=== PATIENT | male | born 1980 ===

== ENCOUNTER 2021-03-20 06:57 | Inpatient (IN) | payer SELFPAY ==
--- NOTE | 2021-03-20 07:09 | Emergency Department Report ---
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 He reports a history of alcohol abuse, and GI bleed. He reports being admitted to a hospital in [place] a few months ago, for GI bleed. He does not know what hospital he was admitted to, nor does he know the details of his diagnosis. He presents to the ER today with a complaint of vomiting blood, defecation of blood, and possible seizure. He believes that he had a seizure at home on the bed. He states his last alcoholic beverage was yesterday. The patient denies headache, neck pain, chest pain, abdominal pain, muscle Doddy and suicidality. The patient thinks that either himself or his brother called 911 because of a possible seizure today. Patient is a poor historian, not accompanied by friends or family at this time for collateral information or additional information. -: Sudden Severity scale (0 -10): 0 Consistency: intermittent Improves with: none Worsens with: none - Related Data Home Medications Medication Instructions Recorded Confirmed Last Taken No Known Home Medications [No 03/20/21 03/20/21 Unknown Reported Home Medications] Allergies Allergy/AdvReac Type Severity Reaction Status Date / Time No Known Allergies Allergy Unverified 03/20/21 07:13 ED Review of Systems ROS: Stated complaint: POSS SEIZURE Other details as noted in HPI Constitutional: malaise, weakness Eyes: denies: eye discharge ENT: denies: epistaxis Respiratory: denies: cough Cardiovascular: denies: chest pain Gastrointestinal: nausea, vomiting, hematemesis, melena. denies: abdominal pain, hematochezia Neurological: weakness Psychiatric: anxiety. denies: suicidal thoughts ED Past Medical Hx - Medications Home Medications: Home Medications Medication Instructions Recorded Confirmed Last Taken Type No Known Home Medications [No 03/20/21 03/20/21 Unknown History Reported Home Medications] ED Physical Exam - General Limitations: Language Barrier, Other (Tongue fasciculations. Tremors.) General appearance: alert, anxious - Head Head exam: Present: atraumatic, normocephalic - Eye Eye exam: Present: normal appearance, EOMI. Absent: nystagmus - ENT ENT exam: Present: normal exam, normal orophraynx, mucous membranes moist, normal external ear exam, other (Tongue fasciculations noted) - Neck Neck exam: Present: normal inspection, full ROM. Absent: tenderness, meningismus - Respiratory Respiratory exam: Present: normal lung sounds bilaterally. Absent: respiratory distress, wheezes, rales, rhonchi, stridor, decreased breath sounds - Cardiovascular Cardiovascular Exam: Present: normal rhythm, tachycardia, normal heart sounds. Absent: bradycardia, irregular rhythm, systolic murmur, diastolic murmur, rubs, gallop - GI/Abdominal GI/Abdominal exam: Present: soft. Absent: distended, tenderness, guarding, rebound, rigid, pulsatile mass - Rectal Rectal exam: Present: normal inspection (Chaperoned by nurse Beth Slater), normal rectal tone, heme (+) stool, black stool - Extremities Exam Extremities exam: Present: normal inspection, full ROM, other (2+ pulses noted in the bilateral upper and lower extremities. There is no palpable cord. ne gative Homans sign. Muscular compartments are soft. The pelvis is stable.). Absent: pedal edema, calf tenderness - Back Exam Back exam: Present: normal inspection. Absent: tenderness, CVA tenderness (R), CVA tenderness (L), paraspinal tenderness, vertebral tenderness - Neurological Exam Neurological exam: Present: alert (The patient is hyperreflexic), other (No facial droop. Tongue midline. Extraocular movements intact bilaterally. Facial sensation intact to light touch in V1, V2, V3 distribution bilaterally. 5 and a 5 strength in 4 extremities. Sensation intact to light touch in 4 extremities.) - Psychiatric Psychiatric exam: Present: anxious. Absent: homicidal ideation, suicidal ideation - Skin Skin exam: Present: warm, dry, intact, normal color. Absent: rash ED Course Vital Signs 03/20/21 03/20/21 03/20/21 06:58 07:07 07:08 Temperature 98.8 F 98.3 F Pulse Rate 100 H 88 89 Respiratory 17 19 20 Rate Blood Pressure 125/47 Blood Pressure 118/64 125/47 [Right] O2 Sat by Pulse 99 99 97 Oximetry - Reevaluation(s) Reevaluation #1: 03/20/21 07:47 Differential diagnosis, including but not limited to: Upper GI bleed, alcohol withdrawal, electrolyte derangement, intracranial hemorrhage Assessment and plan: 41-year-old gentleman, who is an alcoholic, with tachycardia, tongue fasciculations, tremors, black tarry stool, and history of vomiting blood and defecation of blood, with possible seizure. Suspect alcohol-related withdrawal seizure. There is no midline cervical spine pain, tenderness, step-offs or history of trauma. Obtain CT scan of the brain. Start Valium. Start Keppra. IV fluids/Protonix/banana bag. GI on board. Obtain appropriate laboratory studies, alcohol withdrawal protocol. Admit patient to the medical service once initial diagnostics have resulted. Discussed this plan of care with the patient. He is agreeable to this plan of care. All questions answered. 03/20/21 08:27 patient found to have macrocytic anemia with unremarkable platelet count. Comprehensive metabolic panel demonstrates elevated BUN, compared to creatinine, corroborative of upper GI bleed. Noncontrast CT scan to my interpretation does not appear to demonstrate any acute findings. Serum toxicology study unremarkable. Patient resting comfortably in stretcher. Hospital physician, Dr. Chao to admit to [facility] will admit to [facility] 03/20/21 09:01 chest x-ray suggest pulmonary infiltrate. Uncertain if aspiration, or infection. We will cover with antibiotics - Consultations Consultation #1: 03/20/21 07:46 Discussed history, physical, clinical impression with gastroenterology on-call, Dr. Ortega. She is in agreement with the plan of care. GI will follow in consultation. Request call back to the GI group once initial laboratory studies have resulted. 03/20/21 08:59 Rediscussed with GI on-call, Dr. Plata. Discussed history, physical, laboratory studies and imaging studies. GI will see the patient shortly in consultation. At this point time, we agreed to not initiate antibiotics or octreotide. Patient resting comfortably in stretcher. ED Medical Decision Making - Lab Data Result diagrams: 03/20/21 07:30 03/20/21 07:30 Vital Signs 03/20/21 03/20/21 03/20/21 06:58 07:07 07:08 Temperature 98.8 F 98.3 F Pulse Rate 100 H 88 89 Respiratory 17 19 20 Rate Blood Pressure 125/47 Blood Pressure 118/64 125/47 [Right] O2 Sat by Pulse 99 99 97 Oximetry Lab Results 03/20/21 03/20/21 03/20/21 Range/Units 07:30 07:30 07:30 WBC 5.9 (4.5-11.0) K/mm3 RBC 2.39 L (3.65-5.03) M/mm3 Hgb 4.4 L* (11.8-15.2) gm/dl Hct 15.1 L* (35.5-45.6) % MCV 63 L (84-94) fl MCH 18 L (28-32) pg MCHC 29 L (32-34) % RDW 22.4 H (13.2-15.2) % Plt Count 247 (140-440) K/mm3 Lymph % (Auto) 13.4 (13.4-35.0) % [place] % (Auto) 9.2 H (0.0-7.3) % Eos % (Auto) 0.3 (0.0-4.3) % Baso % (Auto) 1.8 (0.0-1.8) % Lymph # (Auto) 0.8 L (1.2-5.4) K/mm3 [place] # (Auto) 0.5 (0.0-0.8) K/mm3 Eos # (Auto) 0.0 (0.0-0.4) K/mm3 Baso # (Auto) 0.1 (0.0-0.1) K/mm3 Seg Neutrophils % 75.3 H (40.0-70.0) % Seg Neutrophils # 4.4 (1.8-7.7) K/mm3 PT 14.3 (12.2-14.9) Sec. INR 1.00 (0.87-1.13) APTT 28.2 (24.2-36.6) Sec. Sodium 132 L (137-145) mmol/L Potassium 3.7 (3.6-5.0) mmol/L Chloride 97.6 L (98-107) mmol/L Carbon Dioxide 21 L (22-30) mmol/L Anion Gap 17 mmol/L BUN 23 H (9-20) mg/dL Creatinine 0.7 L (0.8-1.3) mg/dL Estimated GFR > 60 ml/min BUN/Creatinine Ratio 33 % Glucose 128 H (75-100) mg/dL Calcium 8.6 (8.4-10.2) mg/dL Magnesium (1.7-2.3) mg/dL Total Bilirubin 0.40 (0.1-1.2) mg/dL AST 36 (5-40) units/L ALT 23 (7-56) units/L Alkaline Phosphatase 41 (35-129) units/L Total Creatine Kinase (55-170) units/L Total Protein 6.9 (6.3-8.2) g/dL Albumin 3.9 (3.9-5) g/dL Albumin/Globulin Ratio 1.3 % Salicylates (2.8-20.0) mg/dL Acetaminophen (10.0-30.0) ug/mL Plasma/Serum Alcohol (0-0.07) % 03/20/21 03/20/21 03/20/21 Range/Units 07:30 07:30 07:30 WBC (4.5-11.0) K/mm3 RBC (3.65-5.03) M/mm3 Hgb (11.8-15.2) gm/dl Hct (35.5-45.6) % MCV (84-94) fl MCH (28-32) pg MCHC (32-34) % RDW (13.2-15.2) % Plt Count (140-440) K/mm3 Lymph % (Auto) (13.4-35.0) % [place] % (Auto) (0.0-7.3) % Eos % (Auto) (0.0-4.3) % Baso % (Auto) (0.0-1.8) % Lymph # (Auto) (1.2-5.4) K/mm3 [place] # (Auto) (0.0-0.8) K/mm3 Eos # (Auto) (0.0-0.4) K/mm3 Baso # (Auto) (0.0-0.1) K/mm3 Seg Neutrophils % (40.0-70.0) % Seg Neutrophils # (1.8-7.7) K/mm3 PT (12.2-14.9) Sec. INR (0.87-1.13) APTT (24.2-36.6) Sec. Sodium (137-145) mmol/L Potassium (3.6-5.0) mmol/L Chloride (98-107) mmol/L Carbon Dioxide (22-30) mmol/L Anion Gap mmol/L BUN (9-20) mg/dL Creatinine (0.8-1.3) mg/dL Estimated GFR ml/min BUN/Creatinine Ratio % Glucose (75-100) mg/dL Calcium (8.4-10.2) mg/dL Magnesium 1.70 (1.7-2.3) mg/dL Total Bilirubin (0.1-1.2) mg/dL AST (5-40) units/L ALT (7-56) units/L Alkaline Phosphatase (35-129) units/L Total Creatine Kinase 400 H (55-170) units/L Total Protein (6.3-8.2) g/dL Albumin (3.9-5) g/dL Albumin/Globulin Ratio % Salicylates < 0.3 L (2.8-20.0) mg/dL Acetaminophen 5.0 L (10.0-30.0) ug/mL Plasma/Serum Alcohol (0-0.07) % // Range/Units 07:30 WBC (4.5-11.0) K/mm3 RBC (3.65-5.03) M/mm3 Hgb (11.8-15.2) gm/dl Hct (35.5-45.6) % MCV (84-94) fl MCH (28-32) pg MCHC (32-34) % RDW (13.2-15.2) % Plt Count (140-440) K/mm3 Lymph % (Auto) (13.4-35.0) % [place] % (Auto) (0.0-7.3) % Eos % (Auto) (0.0-4.3) % Baso % (Auto) (0.0-1.8) % Lymph # (Auto) (1.2-5.4) K/mm3 [place] # (Auto) (0.0-0.8) K/mm3 Eos # (Auto) (0.0-0.4) K/mm3 Baso # (Auto) (0.0-0.1) K/mm3 Seg Neutrophils % (40.0-70.0) % Seg Neutrophils # (1.8-7.7) K/mm3 PT (12.2-14.9) Sec. INR (0.87-1.13) APTT (24.2-36.6) Sec. Sodium (137-145) mmol/L Potassium (3.6-5.0) mmol/L Chloride (98-107) mmol/L Carbon Dioxide (22-30) mmol/L Anion Gap mmol/L BUN (9-20) mg/dL Creatinine (0.8-1.3) mg/dL Estimated GFR ml/min BUN/Creatinine Ratio % Glucose (75-100) mg/dL Calcium (8.4-10.2) mg/dL Magnesium (1.7-2.3) mg/dL Total Bilirubin (0.1-1.2) mg/dL AST (5-40) units/L ALT (7-56) units/L Alkaline Phosphatase (35-129) units/L Total Creatine Kinase (55-170) units/L Total Protein (6.3-8.2) g/dL Albumin (3.9-5) g/dL Albumin/Globulin Ratio % Salicylates (2.8-20.0) mg/dL Acetaminophen (10.0-30.0) ug/mL Plasma/Serum Alcohol 0.09 H (0-0.07) % - EKG Data -: EKG Interpreted by Tn EKG shows normal: sinus rhythm Rate: normal - EKG Data 03/20/21 07:57 The EKG is interpreted at 07: 47 Sinus rate, 74 bpm, normal axis, normal P wave axis, numerous T wave abnormalities, high left ventricular voltage, QTC is prolonged, this is an abnormal EKG, this EKG is not a STEMI. The patient denies chest pain. - Radiology Data Radiology results: pending, report reviewed, image reviewed CT head/brain wo con INDICATION / CLINICAL INFORMATION: 41 years Male; etoh abuse seizure. TECHNIQUE: Routine CT head without contrast. All CT scans at this location are performed using CT dose reduction for ALARA by means of automated exposure control. COMPARISON: None. FINDINGS: BRAIN / INTRACRANIAL CONTENTS: No acute hemorrhage, mass effect, midline shift, hydrocephalus, or acute, large territorial infarct. No signs of significant atrophy or chronic infarct. No significant white matter abnormality seen. CRANIOCERVICAL JUNCTION: No significant abnormality. ORBITS: No significant abnormality of visualized orbits. SINUSES / MASTOIDS: Mild mucosal thickening in the ethmoids. ADDITIONAL FINDINGS: None. IMPRESSION: 1. No focal mass, hemorrhage, hydrocephalus, or acute, large territorial infarct. Signer Name: Asael Capps MD, III Signed: 03/20/2021 7:47 AM Workstation Name: [id number] CHEST 1 VIEW 03/20/2021 7:36 AM INDICATION / CLINICAL INFORMATION: hematemesis. COMPARISON: None available. FINDINGS: SUPPORT DEVICES: None. HEART / MEDIASTINUM: No significant abnormality. LUNGS / PLEURA: Right basilar opacity. No pneumothorax. ADDITIONAL FINDINGS: No significant additional findings. IMPRESSION: 1. Right basilar opacity which may represent infectious process in the appropriate clinical setting. Signer Name: Hao Pathak DO Signed: 03/20/2021 7:40 AM Workstation Name: [id number] Critical Care Time: Yes Critical care time in (mins) excluding proc time.: 45 Critical care attestation.: If time is entered above; I have spent that time in minutes in the direct care of this critically ill patient, excluding procedure time. ED Disposition Clinical Impression: UGIB (upper gastrointestinal bleed), Alcohol withdrawal seizure with complication, Alcohol dependence, Microcytic anemia, Pulmonary infiltrate in right lung on CXR Disposition: 09 ADMITTED INPATIENT Is pt being admited?: Yes Does the pt Need Aspirin: No Condition: Serious Referrals: PRIMARY CARE, [Primary Care Provider] - 3-5 Days
[2021-03-20] MEDS ORDERED: PANTOPRAZOLE 40 MG INJ IV ONE (07:25)
[2021-03-20] MEDS ORDERED: levETIRAcetam 1000 MG/NS 0.75% 1,000 MG/100 ML BAG IV ONE (07:25)
[2021-03-20] MEDS ORDERED: diazePAM 10 MG/2 ML SYRINGE IV ONE (07:25)
[2021-03-20] MEDS ORDERED: ONDANSETRON 4 MG/2 ML INJ IV ONE (07:25)
[2021-03-20 07:59] LABS: Basophils # (Auto) 0.1 K/mm3 (0.0-0.1); Basophils % (Auto) 1.8 % (0.0-1.8); Eosinophils % (Auto) 0.3 % (0.0-4.3); Lymphocytes # (Auto) 0.8 K/mm3 (1.2-5.4); Lymphocytes % (Auto) 13.4 % (13.4-35.0); Mean Corpuscular HGB Conc 29 % (32-34); Monocytes # (Auto) 0.5 K/mm3 (0.0-0.8); Monocytes % (Auto) 9.2 % (0.0-7.3); Platelet Count 247 K/mm3 (140-440); Red Blood Count 2.39 M/mm3 (3.65-5.03)
[2021-03-20] MEDS ORDERED: THIAMINE 100 MG, FOLIC ACID 1 MG, MULTIPLE VITAMIN INJ, ADULT 10 ML in SODIUM CHLORIDE ... IV ONE (08:00)
[2021-03-20 08:02] LABS: Hemoglobin 4.4 gm/dl (11.8-15.2)
[2021-03-20 08:03] LABS: Hematocrit 15.1 % (35.5-45.6); Mean Corpuscular Volume 63 fl (84-94); Red Cell Distribution Width 22.4 % (13.2-15.2)
[2021-03-20] MEDS ORDERED: SODIUM CHLORIDE 0.9% 500 ML 500 ML IV ONE ×2 (08:05→17:57)
[2021-03-20 08:11] LABS: Partial Thromboplastin Time 28.2 Sec. (24.2-36.6)
[2021-03-20 08:15] LABS: Alanine Aminotransferase 23 units/L (7-56); Albumin 3.9 g/dL (3.9-5); Blood Urea Nitrogen 23 mg/dL (9-20); Calcium 8.6 mg/dL (8.4-10.2); Hemolysis Index 0
[2021-03-20 08:20] LABS: BUN/Creatinine Ratio 33
--- NOTE | 2021-03-20 08:44 | XRay Report ---
CHEST 1 VIEW 03/20/2021 7:36 AM INDICATION / CLINICAL INFORMATION: hematemesis. COMPARISON: None available. FINDINGS: SUPPORT DEVICES: None. HEART / MEDIASTINUM: No significant abnormality. LUNGS / PLEURA: Right basilar opacity. No pneumothorax. ADDITIONAL FINDINGS: No significant additional findings. IMPRESSION: 1. Right basilar opacity which may represent infectious process in the appropriate clinical setting. Signer Name: Hao Pathak DO Signed: 03/20/2021 8:40 AM Workstation Name: [id number]
--- NOTE | 2021-03-20 08:52 | Cat Scan Report ---
CT head/brain wo con INDICATION / CLINICAL INFORMATION: 41 years Male; etoh abuse seizure. TECHNIQUE: Routine CT head without contrast. All CT scans at this location are performed using CT dos e reduction for ALARA by means of automated exposure control. COMPARISON: None. FINDINGS: BRAIN / INTRACRANIAL CONTENTS: No acute hemorrhage, mass effect, midline shift, hydrocephalus, or acu te, large territorial infarct. No signs of significant atrophy or chronic infarct. No significant whi te matter abnormality seen. CRANIOCERVICAL JUNCTION: No significant abnormality. ORBITS: No significant abnormality of visualized orbits. SINUSES / MASTOIDS: Mild mucosal thickening in the ethmoids. ADDITIONAL FINDINGS: None. IMPRESSION: 1. No focal mass, hemorrhage, hydrocephalus, or acute, large territorial infarct. Signer Name: Asael Capps MD, III Signed: 03/20/2021 8:47 AM Workstation Name: [id number]
[2021-03-20] MEDS ORDERED: cefTRIAXone/NS 1 GM/50 ML 1 GM/50 ML BAG IV ONE (09:00)
[2021-03-20] MEDS ORDERED: AZITHROMYCIN/NS 500 MG/250 ML 500 MG/250 ML BAG IV ONE (09:00)
[2021-03-20] MEDS ORDERED: SODIUM CHLORIDE 0.9% 500 ML 500 ML IV NR (09:04)
[2021-03-20 09:46] LABS: Bilirubin,Urine NEG (Negative); Blood,Urine NEG (Negative); Color,Urine Yellow (Yellow); Protein,Urine <15 mg/dL mg/dL (Negative); RBC,Urine < 1.0 /HPF (0.0-6.0); Urobilinogen,Urine < 2.0 mg/dL (<2.0); WBC,Urine < 1.0 /HPF (0.0-6.0)
[2021-03-20 09:55] LABS: Amphetamine Screen,Urine Negative; Benzodiazepines Screen,Urine Negative; Cannabinoid Screen,Urine Negative; Cocaine Screen,Urine Negative; Methadone Screen,Urine Negative; Opiate Screen,Urine Negative
--- NOTE | 2021-03-20 12:03 | History and Physical Report ---
History of Present Illness Date of examination: 03/20/21 Date of admission: 03/20/21 08:28 Chief complaint: Vomiting blood History of present illness: The patient is a 41-year-old gentleman with a history of alcohol abuse and GI bleed who reported being admitted to a hospital in [place] a few months ago, for GI bleed. He does not know what hospital he was admitted to, nor does he know the details of his diagnosis. He presents to the ER today with a complaint of vomiting blood, bloody stool, and possible seizure. He believes that he had a seizure at home on the bed. He states his last alcoholic beverage was yesterday. The patient denies headache, neck pain, chest pain, abdominal pain, muscle Doddy and suicidality. The patient thinks that either himself or his brother called 911 because of a possible seizure today. Patient is a poor historian, not accompanied by friends or family at this time for collateral information or additional information. Patient states that he drinks 4 beers daily. Work-up in the ER showed hemoglobin of 4.4, sodium 123 plasma alcohol level 0.09. Patient was given IV fluid, initiated on blood transfusion, placed on CIWA protocol, GI consulted and call for admission for further evaluation and manag ement of severe anemia, acute GI bleed. Review of System: Constitutional: no fever, no chills, no weight loss Ears, eyes, nose, mouth and throat: no nasal congestion, no nasal discharge, no sinus pressure, no vision change, no red eye. Neck: No neck pain or rigidity. Cardiovascular: No chest pain, no orthopnea, no palpitations, no leg swelling Respiratory: No shortness of breath, no cough, no congestion, no wheezing Gastrointestinal: + abdominal pain, + nausea, + vomiting Genitourinary : no dysuria, no hematuria Musculoskeletal: no joint swelling or muscle ache Integumentary: no rash, no pruritis Neurological: no parathesias, no numbness, no tingling Endocrine: no cold or heat intolerance, no polyuria or polydipsia Hematologic/Lymphatic: no easy bruising, no easy bleeding, no gland swelling Allergic/Immunologic: no urticaria, no angioedema. Past History Past Medical History: other (Alcohol abuse) Past Surgical History: denies: No surgical history Social history: alcohol abuse Family history: no significant family history Medications and Allergies Allergies Allergy/AdvReac Type Severity Reaction Status Date / Time No Known Allergies Allergy Unverified 03/20/21 07:13 Home Medications Medication Instructions Recorded Confirmed Last Taken Type No Known Home Medications [No 03/20/21 03/20/21 Unknown History Reported Home Medications] Active Meds: Active Medications Pantoprazole Sodium 80 mg/ (Sodium Chloride) 100 mls @ 10 mls/hr IV DIRECT BOYD Sodium Chloride (Nacl 0.9% 500 Ml) 500 mls @ 0 mls/hr IV ONCE NR Stop: 03/20/21 20:00 Sodium Chloride (Nacl 0.9% 1000 Ml) 1,000 mls @ 125 mls/hr IV DIRECT BOYD Lorazepam (Lorazepam 2 Mg/Ml Vial) 2 mg IV Q1HR PRN PRN Reason: CIWA-Ar 8-15 Lorazepam (Lorazepam 2 Mg/Ml Vial) 4 mg IV Q1HR PRN PRN Reason: CIWA-Ar 16-25 Exam - Physical Exam Narrative exam: GENERAL: well-developed and well-nourished male lying on bed appeared to be in mild discomfort with tremors. HEENT: Normocephalic. Atraumatic. No conjunctival congestion or icterus. Patient has moist mucous membranes. NECK: Supple. Trachea midline. CHEST/LUNGS: Clear to auscultated bilaterally, breathing nonlabored. No wheezes crackles or rhonchi. HEART/CARDIOVASCULAR: Regular in rate and rhythm. S1 and S2 positive. ABDOMEN: Abdomen is soft, mild epigastric tenderness. Patient has normal bowel sounds. SKIN: There is no rash. Warm and dry. NEURO: No focal motor deficit. Follows command. Positive asterixis MUSCULOSKELETAL: No joint effusion or tenderness. EXTRIMITY: No edema, no cyanosis or clubbing. PSYCH: Cooperative. - Constitutional Vitals: Temp Pulse Resp BP Pulse Ox 98.3 F 107 H 29 H 120/66 100 03/20/21 07:07 03/20/21 10:00 03/20/21 10:00 03/20/21 10:00 03/20/21 10:00 Results - Labs CBC & Chem 7: 03/22/21 07:46 03/22/21 07:40 Labs: Abnormal lab results 03/20/21 03/20/21 03/20/21 Range/Units 07:25 07:30 07:30 RBC 2.39 L (3.65-5.03) M/mm3 Hgb 4.4 L* (11.8-15.2) gm/dl Hct 15.1 L* (35.5-45.6) % MCV 63 L (84-94) fl MCH 18 L (28-32) pg MCHC 29 L (32-34) % RDW 22.4 H (13.2-15.2) % [place] % (Auto) 9.2 H (0.0-7.3) % Lymph # (Auto) 0.8 L (1.2-5.4) K/mm3 Seg Neutrophils % 75.3 H (40.0-70.0) % Sodium 132 L (137-145) mmol/L Chloride 97.6 L (98-107) mmol/L Carbon Dioxide 21 L (22-30) mmol/L BUN 23 H (9-20) mg/dL Creatinine 0.7 L (0.8-1.3) mg/dL Glucose 128 H (75-100) mg/dL Total Creatine Kinase (55-170) units/L Salicylates (2.8-20.0) mg/dL Acetaminophen (10.0-30.0) ug/mL Plasma/Serum Alcohol (0-0.07) % Crossmatch See Detail 03/20/21 03/20/21 03/20/21 Range/Units 07:30 07:30 07:30 RBC (3.65-5.03) M/mm3 Hgb (11.8-15.2) gm/dl Hct (35.5-45.6) % MCV (84-94) fl MCH (28-32) pg MCHC (32-34) % RDW (13.2-15.2) % [place] % (Auto) (0.0-7.3) % Lymph # (Auto) (1.2-5.4) K/mm3 Seg Neutrophils % (40.0-70.0) % Sodium (137-145) mmol/L Chloride (98-107) mmol/L Carbon Dioxide (22-30) mmol/L BUN (9-20) mg/dL Creatinine (0.8-1.3) mg/dL Glucose (75-100) mg/dL Total Creatine Kinase 400 H (55-170) units/L Salicylates < 0.3 L (2.8-20.0) mg/dL Acetaminophen 5.0 L (10.0-30.0) ug/mL Plasma/Serum Alcohol (0-0.07) % Crossmatch 03/20/21 Range/Units 07:30 RBC (3.65-5.03) M/mm3 Hgb (11.8-15.2) gm/dl Hct (35.5-45.6) % MCV (84-94) fl MCH (28-32) pg MCHC (32-34) % RDW (13.2-15.2) % [place] % (Auto) (0.0-7.3) % Lymph # (Auto) (1.2-5.4) K/mm3 Seg Neutrophils % (40.0-70.0) % Sodium (137-145) mmol/L Chloride (98-107) mmol/L Carbon Dioxide (22-30) mmol/L BUN (9-20) mg/dL Creatinine (0.8-1.3) mg/dL Glucose (75-100) mg/dL Total Creatine Kinase (55-170) units/L Salicylates (2.8-20.0) mg/dL Acetaminophen (10.0-30.0) ug/mL Plasma/Serum Alcohol 0.09 H (0-0.07) % Crossmatch - Imaging and Cardiology Chest x-ray: report reviewed (Right basilar opacity) CT Scan - head: report reviewed (Reviewed, no focal mass hemorrhage or infarct) Assessment and Plan --Acute upper GI bleed --Severe blood loss anemia Patient received 1 unit of packed RBC transfusion in the ER Will transfuse 2 more additional unit of packed RBC Continue PPI IV, consulted GI for possible EGD continue IV fluid, monitor H&H --Seizure likely due to alcohol withdrawal Admit to stepdown unit, CT head unremarkable Patient placed on Ativan as needed as needed for seizure --Alcohol abuse with withdrawal Supportive care for alcohol withdrawal, Place on [facility] protocol --Right basilar opacity likely aspiration pneumonia No elevated white count, no fever, monitor off antibiotics --DVT prophylaxis, SCD Plan: Admit to stepdown unit, CT head unremarkable Patient received 1 unit of packed RBC transfusion in the ER Will transfuse 2 more additional unit of packed RBC Continue PPI IV, consulted GI for possible EGD continue IV fluid, monitor H&H Supportive care for alcohol withdrawal, Place on [place] protocol SCD for GI prophylaxis
--- NOTE | 2021-03-20 13:00 | Electrocardiograph Report ---
[facility] Test Date: 2021-03-20 Test Time: 07:47:54 Pat Name: SHAWNA MILLER Department: Room: [facility] Gender: M Vessel Scrapper: CLAUDIA : 1980 Requested By: DEBI MONACO Order Number: [id number] Reading MD: Carlito Nelson Measurements Intervals [place] Rate: 74 P: 16 VA: 124 QRS: 18 QRSD: 99 T: -73 QT: 535 QTc: 595 Interpretive Statements Sinus rhythm T wave inversions, consider inferior ischemia Prolonged QT interval No previous ECG available for comparison Electronically Signed On 03-20-2021 13:00:31 EST by Carlito Nelson
[2021-03-20 16:19] LABS: Hemoglobin 5.2 gm/dl (11.8-15.2)
[2021-03-20 16:20] LABS: Hematocrit 17.8 % (35.5-45.6)
--- NOTE | 2021-03-20 19:07 | Event Note ---
Date: 03/20/21 Full consult dictated - signs UGI bleed - transfuse to Hgb >7 - egd in am
[2021-03-21 00:01] LABS: Hematocrit 20.5 % (35.5-45.6); Hemoglobin 6.3 gm/dl (11.8-15.2)
[2021-03-21] MEDS: LORazepam 2 MG/ML VIAL IV PRN ×16 (00:06→23:10)
--- NOTE | 2021-03-21 02:32 | Consultation ---
DATE OF CONSULTATION: 03/20/2021 REFERRING PHYSICIAN: Dr. Rosa Chao. INDICATIONS: 1. Anemia. 2. Gastrointestinal bleed. HISTORY OF PRESENT ILLNESS: The patient is a 41-year-old male who presents for upper GI bleed. The patient has a history of alcohol abuse. The patient started having nausea, vomiting and reported to have multiple bouts of hematemesis. He denies a history of GI bleed in the past. The patient does drink heavily, but denies a history of any known liver disease. The patient subsequently came to the emergency room, was noted to be significantly anemic as well as hypertensive, admitted and GI consulted. PAST MEDICAL HISTORY: None. MEDICATIONS: Reviewed and updated in chart. ALLERGIES: No known drug allergies. SOCIAL HISTORY: Reports daily alcohol. FAMILY HISTORY: Negative for colon cancer, IBD, or liver disease. REVIEW OF SYSTEMS: GENERAL: Positive for some weakness. HEENT: No visual complaints or tinnitus. PULMONARY: No shortness of breath, chest pain. GASTROINTESTINAL: Reports upper GI bleed. All points of 13-point review of systems otherwise negative. PHYSICAL EXAMINATION: VITAL SIGNS: Temperature of 98.7, pulse 100, respirations 18, blood pressure 135/70. GENERAL: Fairly nourished with no acute distress. HEENT: Pupils equal, round and reactive. PULMONARY: Clear. CARDIOVASCULAR: Regular rate and rhythm. Normal S1, S2. ABDOMEN: Positive bowel sounds, soft. SKIN: No obvious rashes. LABORATORY DATA: Pertinent for white count of 5.9, hemoglobin and hematocrit of 4.4 and 15.1, platelet count of 247. Coags within normal limits. Chem-7 within normal limits. ASSESSMENT: A 41-year-old male who presents with coffee emesis and dark stools, signs of GI bleed and noted to be profoundly anemic. The patient's labs do not support cirrhosis. Management as noted below. PLAN: 1. Follow hematocrit and transfuse as needed. 2. PPI IV drip. 3. N.p.o. 4. Plan EGD in a.m. TID: [id number] RECEIPT: [id number] [facility] [place]
[2021-03-21] MEDS: SODIUM CHLORIDE 0.9% 1000 ML 1,000 ML IV SCH ×3 (03:35→21:26)
[2021-03-21] MEDS: PANTOPRAZOLE 80 MG in SODIUM CHLORIDE 0.9% 100 ML IV SCH ×3 (03:35→23:08)
--- NOTE | 2021-03-21 10:40 | Gastroenterology Progress Note ---
Assessment and Plan This is a 41 yo male with h/o significant alcohol use admitted for possible alcohol withdrawal seizure. GI consulted for GI bleed with melena and hematemesis. Found to have Hgb down to 4.4. # Anemia # GI bleed - reported h/o melena and hematemesis prior to admission. - Hgb down to 4.4 on admission s/p 4 units of PRBC. - no overt signs of GI bleeding since admission. - going through alcohol withdrawal with high CIWA score. Transferred to ICU. - rectal exam today with light gould stool. No melena or blood. - Hgb most recent overnight at 6.3 awaiting AM labs. - no signs of cirrhosis on labs or on exam. Rec - hold off EGD at this time given alcohol withdrawal. - cont with PPI IV drip - monitor serial H/H and transfuse as needed Hgb goal >7. - monitor for signs of active GI bleeding. - will follow. Subjective Date of service: 03/21/21 Interval history: Patient transferred to ICU overnight for worsening alcohol withdrawal symptoms and high CIWA score. Patient with restraints. No report of nausea/vomiting or BM. No bleeding signs. Received 4 units of PRBC. Objective - Constitutional Vitals: Temp Pulse Resp BP Pulse Ox 98.7 F 114 H 17 151/64 98 03/21/21 07:00 03/21/21 09:00 03/21/21 09:00 03/21/21 09:00 03/21/21 09:00 General appearance: other (agitated) - EENT Eyes: EOM intact - Respiratory Respiratory effort: normal - Cardiovascular Rhythm: regular Heart Sounds: Present: S1 & S2 - Gastrointestinal General gastrointestinal: Present: soft, non-tender, non-distended - Integumentary Integumentary: Present: clear, warm - Neurologic Neurological: disoriented, other - Psychiatric Psychiatric: agitated - Labs CBC & Chem 7: 03/20/21 23:50 03/20/21 07:30 Labs: Laboratory Results - last 24 hr 03/20/21 03/20/21 03/20/21 07:25 15:46 23:50 Hgb 5.2 L* 6.3 L Hct 17.8 L* 20.5 L Blood Type O NEGATIVE Antibody Screen Negative Crossmatch See Detail
[2021-03-21 11:16] LABS: Hematocrit 29.5 % (35.5-45.6); Hemoglobin 9.1 gm/dl (11.8-15.2); Mean Corpuscular HGB Conc 31 % (32-34); Mean Corpuscular Volume 75 fl (84-94); Platelet Count 310 K/mm3 (140-440); Red Blood Count 3.93 M/mm3 (3.65-5.03)
[2021-03-21 11:18] LABS: Red Cell Distribution Width 26.8 % (13.2-15.2)
[2021-03-21 11:40] LABS: Blood Urea Nitrogen 12 mg/dL (9-20); Calcium 8.5 mg/dL (8.4-10.2); Hemolysis Index 2
[2021-03-21 11:41] LABS: BUN/Creatinine Ratio 20
--- NOTE | 2021-03-21 16:23 | Progress Note ---
Assessment and Plan The patient is a 41-year-old gentleman with a history of alcohol abuse and GI bleed who reported being admitted to a hospital in [place] a few months ago, for GI bleed presents to the ER today with a complaint of vomiting blood, bloody stool, and possible seizure. Assessment and plan: --Acute upper GI bleed --Severe blood loss anemia Patient received 1 unit of packed RBC transfusion in the ER Will transfuse 2 more additional unit of packed RBC Continue PPI IV, consulted GI for possible EGD continue IV fluid, monitor H&H, continue PPI IV --Seizure likely due to alcohol withdrawal Admit to stepdown unit, CT head unremarkable Patient placed on Ativan as needed as needed for seizure --Alcohol abuse with withdrawal/delirium tremens Supportive care for alcohol withdrawal, Place on CIWA protocol --Right basilar opacity likely aspiration pneumonia No elevated white count, no fever, monitor off antibiotics --Hypokalemia, continue to replete and monitor BMP --DVT prophylaxis, SCD The high probability of a clinically significant, sudden or life threatening deterioration of the [multiple] system(s) required my full and direct attention, intervention and personal management. The aggregate critical care time was [35] minutes. This time is in addition to time spent performing reported procedures but includes the following: [x] Data Review and interpretation [x] Patient assessment and monitoring of vital signs [x] Documentation [x] Medication orders and management Daily clinical course: 03/20/21 Admit to stepdown unit, CT head unremarkable Patient received 1 unit of packed RBC transfusion in the ER Will transfuse 2 more additional unit of packed RBC Continue PPI IV, consulted GI for possible EGD continue IV fluid, monitor H&H Supportive care for alcohol withdrawal, Place on CIWA protocol SCD for GI prophylaxis 03/21/21 Patient CIWA score is persistently very high, transferred to ICU Status post 4 units of packed RBC transfusion, H&H currently stable, no further sign of active GI bleed Continue PPI IV, consulted GI but EGD postponed as patient currently in delirium tremens continue IV fluid, monitor H&H Follow CIWA protocol Subjective Date of service: 03/21/21 Interval history: Patient seen and examined Patient is very confused and agitated Placed on restraint and transferred to ICU CIWA score persistently greater than 25 Sitter at the bedside Objective - Exam Narrative Exam: GENERAL: well-developed and well-nourished male lying on bed appeared to be very confused and restrained. HEENT: Normocephalic. Atraumatic. No conjunctival congestion or icterus. Patient has moist mucous membranes. NECK: Supple. Trachea midline. CHEST/LUNGS: Clear to auscultated bilaterally, breathing nonlabored. No wheezes crackles or rhonchi. HEART/CARDIOVASCULAR: Regular in rate and rhythm. S1 and S2 positive. ABDOMEN: Abdomen is soft, Patient has normal bowel sounds. SKIN: There is no rash. Warm and dry. NEURO: No focal motor deficit. Does not follow command, agitated. Positive asterixis with tremors MUSCULOSKELETAL: No joint effusion or tenderness. EXTRIMITY: No edema, no cyanosis or clubbing. PSYCH: Unable to assess - Constitutional Vitals: Vital Signs - 12hr 03/21/21 03/21/21 03/21/21 04:30 04:31 04:45 Temperature 100.7 F H Pulse Rate 84 84 81 Pulse Rate [ From Monitor] Respiratory 15 15 14 Rate Blood Pressure 126/108 128/102 147/79 O2 Sat by Pulse 99 99 98 Oximetry 03/21/21 03/21/21 03/21/21 05:00 05:16 05:30 Temperature Pulse Rate 83 Pulse Rate [ From Monitor] Respiratory 14 Rate Blood Pressure 147/79 153/119 153/119 O2 Sat by Pulse 100 94 98 Oximetry 03/21/21 03/21/21 03/21/21 05:46 06:00 06:16 Temperature Pulse Rate 93 H 120 H Pulse Rate [ From Monitor] Respiratory 12 20 Rate Blood Pressure 138/83 138/83 117/71 O2 Sat by Pulse 99 87 98 Oximetry 03/21/21 03/21/21 03/21/21 06:30 06:46 07:00 Temperature 98.7 F Pulse Rate 99 H 115 H 98 H Pulse Rate [ From Monitor] Respiratory 29 H 15 15 Rate Blood Pressure 117/71 117/71 117/71 O2 Sat by Pulse 97 94 Oximetry 03/21/21 03/21/21 03/21/21 07:16 07:30 07:46 Temperature Pulse Rate 103 H 106 H 111 H Pulse Rate [ From Monitor] Respiratory 17 19 16 Rate Blood Pressure 117/71 117/71 117/71 O2 Sat by Pulse Oximetry 03/21/21 03/21/21 03/21/21 08:00 08:16 08:26 Temperature Pulse Rate 95 H 100 H 99 H Pulse Rate [ From Monitor] Respiratory 22 17 Rate Blood Pressure 117/71 151/64 O2 Sat by Pulse 99 92 Oximetry 03/21/21 03/21/21 03/21/21 08:30 08:46 09:00 Temperature Pulse Rate 103 H 117 H 114 H Pulse Rate [ From Monitor] Respiratory 23 21 17 Rate Blood Pressure 151/64 151/64 151/64 O2 Sat by Pulse 97 98 98 Oximetry 03/21/21 03/21/21 03/21/21 09:26 09:30 09:45 Temperature Pulse Rate 94 H 99 H Pulse Rate [ From Monitor] Respiratory 14 20 Rate Blood Pressure 151/64 102/69 152/92 O2 Sat by Pulse 100 100 100 Oximetry 03/21/21 03/21/21 03/21/21 10:00 10:16 10:30 Temperature Pulse Rate 117 H 114 H 99 H Pulse Rate [ From Monitor] Respiratory 26 H 26 H 22 Rate Blood Pressure 152/92 158/104 52/37 O2 Sat by Pulse 96 Oximetry 03/21/21 03/21/21 03/21/21 10:46 11:00 11:16 Temperature Pulse Rate 131 H 97 H Pulse Rate [ From Monitor] Respiratory 23 22 20 Rate Blood Pressure 52/37 52/37 52/37 O2 Sat by Pulse Oximetry 03/21/21 03/21/21 03/21/21 11:30 11:46 12:00 Temperature 97.9 F Pulse Rate 111 H 102 H Pulse Rate [ 91 H From Monitor] Respiratory 24 20 19 Rate Blood Pressure 152/104 210/102 209/92 O2 Sat by Pulse 94 100 96 Oximetry 03/21/21 03/21/21 03/21/21 12:15 12:30 12:46 Temperature Pulse Rate 91 H 95 H 102 H Pulse Rate [ From Monitor] Respiratory 19 21 17 Rate Blood Pressure 136/86 148/85 143/92 O2 Sat by Pulse 100 99 100 Oximetry 03/21/21 03/21/21 03/21/21 13:00 13:16 13:30 Temperature Pulse Rate 107 H 103 H 90 Pulse Rate [ From Monitor] Respiratory Rate Blood Pressure 139/99 139/99 133/82 O2 Sat by Pulse 98 100 Oximetry 03/21/21 03/21/21 03/21/21 13:45 14:00 14:15 Temperature Pulse Rate 94 H 79 87 Pulse Rate [ From Monitor] Respiratory 21 20 14 Rate Blood Pressure 132/74 134/73 119/77 O2 Sat by Pulse 100 96 Oximetry 03/21/21 03/21/21 03/21/21 14:30 14:45 15:00 Temperature Pulse Rate 89 90 100 H Pulse Rate [ From Monitor] Respiratory 15 15 18 Rate Blood Pressure 123/71 127/67 127/67 O2 Sat by Pulse 96 97 87 Oximetry - Labs CBC & Chem 7: 03/22/21 07:46 03/22/21 07:40 Labs: Abnormal lab results 03/20/21 03/20/21 03/21/21 Range/Units 07:25 23:50 10:31 Hgb 6.3 L 9.1 L (11.8-15.2) gm/dl Hct 20.5 L 29.0 L D (35.5-45.6) % MCV (84-94) fl MCH (28-32) pg MCHC (32-34) % RDW (13.2-15.2) % Sodium (137-145) mmol/L Potassium (3.6-5.0) mmol/L Carbon Dioxide (22-30) mmol/L Creatinine (0.8-1.3) mg/dL Crossmatch See Detail 03/21/21 03/21/21 Range/Units 10:31 10:31 Hgb 9.1 L (11.8-15.2) gm/dl Hct 29.5 L (35.5-45.6) % MCV 75 L (84-94) fl MCH 23 L (28-32) pg MCHC 31 L (32-34) % RDW 26.8 H (13.2-15.2) % Sodium 136 L (137-145) mmol/L Potassium 3.2 L (3.6-5.0) mmol/L Carbon Dioxide 20 L (22-30) mmol/L Creatinine 0.6 L (0.8-1.3) mg/dL Crossmatch
[2021-03-21] MEDS: HALOPERIDOL LACTATE 5 MG/1 ML INJ IM PRN ×2 (18:28→21:25)
[2021-03-21 19:15] LABS: Hematocrit 29.1 % (35.5-45.6); Hemoglobin 8.8 gm/dl (11.8-15.2)
[2021-03-22] MEDS: LORazepam 2 MG/ML VIAL IV PRN ×5 (02:10→07:05)
[2021-03-22] MEDS: HALOPERIDOL LACTATE 5 MG/1 ML INJ IM PRN ×2 (02:10→05:43)
[2021-03-22] MEDS: SODIUM CHLORIDE 0.9% 1000 ML 1,000 ML IV SCH (06:01)
[2021-03-22 08:08] LABS: Hemoglobin 8.4 gm/dl (11.8-15.2); Mean Corpuscular HGB Conc 31 % (32-34); Mean Corpuscular Volume 76 fl (84-94); Platelet Count 350 K/mm3 (140-440); Red Blood Count 3.57 M/mm3 (3.65-5.03)
[2021-03-22 08:09] LABS: Red Cell Distribution Width 26.1 % (13.2-15.2)
[2021-03-22 08:10] LABS: Blood Urea Nitrogen 11 mg/dL (9-20); Calcium 8.4 mg/dL (8.4-10.2); Hemolysis Index 15
[2021-03-22 08:19] LABS: BUN/Creatinine Ratio 18
[2021-03-22 08:46] LABS: Band Neutrophils # (Manual) 0.1 K/mm3; Total Cells Counted 100
[2021-03-22 08:47] LABS: Anisocytosis 3+; Hypochromasia 1+; Platelet Estimate Consistent w Auto
[2021-03-22] MEDS: cloNIDine TTS 0.2 MG/24 HR PATCH TD SCH ×2 (08:48→10:44)
[2021-03-22] MEDS: POTASSIUM CHLORIDE 10 MEQ 10 MEQ/100 ML BAG IV SCH ×6 (09:11→13:49)
[2021-03-22] MEDS: PANTOPRAZOLE 80 MG in SODIUM CHLORIDE 0.9% 100 ML IV SCH ×2 (09:44→20:00)
[2021-03-22] MEDS: D5W/0.45% NACL 1,000 ML IV SCH (09:45)
[2021-03-22] MEDS: THIAMINE 100 MG in SODIUM CHLORIDE 0.9% 50 ML IV SCH (09:45)
[2021-03-22] MEDS: FOLIC ACID 1 MG in SODIUM CHLORIDE 0.9% 50 ML IV SCH (09:47)
--- NOTE | 2021-03-22 11:10 | Progress Note ---
<UCHE DIETRICH - Last Filed: 03/22/21 16:07> Assessment and Plan Assessment and plan: This is a 41-year-old male with a history of alcohol abuse and GI bleed admitted for GI bleed and possible seizure. Hospital Course to Date: 03/22/21- Patient remains on CIWA protocol, received over 20mg of IV Ativan overnight. On precedex gtt this am. Patient remains restless and confused, on RA SPO2 at 100%. Patient is s/p 4units of PRBCs, plan for possible EGD in the Am. Will continue serial H&H and protonix gtt. Low K repleted, will repeat in the am. Hypoglycemic this am, IVF switched to D51/2NS. Assessment and Plan #Acute Encephalopathy #?? Seizure #ETOH abuse - Probably related to alcohol withdrawal - Patient is on CIWA protocol - s/p 20mg of IV Ativan overnight - Now on Precedex gtt for RASS goal 0 to -1 - Qtc 595 in today EKG, keep dex at a low dose - CT head is without any intracranial activity - EEG pending - Neurology consulted - PRN Ativan for seizures - Seizure precaution #Tachycardia - Most likely related to above - Improved with precedex gtt - Maintain adequate perfusion - Continue rehydration with cont. IVF - Continue blood pressure monitor per protocol - Maintain MAP above 65 #Right Basilar Opacity #Aspiration Pneumonia - CXR with right basilar opacity may represent infection process - most likely related to possible aspiration given patient's history - Remains on RA, SPO2 at 100% - Will repeat CXR in the am - Aspiration precaution HOB above 30 degree - PRN O2 supplementation as needed - Continue SPO2 monitoring for SPO2 goal above 95% - [facility] consulted #Severe Acute Upper GI bleed #Acute Blood Loss - Presented with and Hbg of 4.4 - S/p 4units of PRBCs - H&H stable this am - Keep patient NPO - Continue rehydration with cont. IVF - Will continue serial H&H Q6hrs - Continue protonix gtt - GI on consult - Plan for possible EGD in the am #Hypokalemia #Hyponatremia-improved - K 3.1 this am, repleted - On continuous IVF - Strict intake and output - Monitor and replace electrolytes as needed #ID:Aspiration Pneumonia - CXR with right basilar opacity may represent infection process - Patient is afebrile with normal WBCs - UA is unremarkable - F/U CXR in the am - Will hold off on antibiotics for now - Continue to trend CBC #Hypoglycemia - Probably due to NPO status - IVF switched to D51/2NS - Hypoglycemic protocol - Avoid Hypoglycemia #DVT prophylaxis - SCDs to bilateral lower extremities while in bed The high probability of a clinically significant, sudden or life threatening deterioration of the [Neuro, GI, Respiratory] system(s) required my full and direct attention, intervention and personal management. The aggregate critical care time was [60] minutes. This time is in addition to time spent performing reported procedures but includes the following: [x] Data Review and interpretation [x] Patient assessment and monitoring of vital signs [x] Documentation [x] Medication orders and management Disposition Plan: ICU Total Time Spent with Patient (Minutes): 60 History Interval history: Patient seen and examined at the bedside. Remains on CIWA protocol, on RA, still restless and confused, and on four point restraints for safety. On precedex and protonix gtt. Per nursing staff, patient received overnight 20mg of IV Ativan overnight. No blood stools overnight Hospitalist Physical - Constitutional Vitals: Temp Pulse Resp BP Pulse Ox 98.0 F 78 14 139/84 99 03/22/21 07:14 03/22/21 10:00 03/22/21 10:00 03/22/21 10:00 03/22/21 10:00 General appearance: Present: mild distress, other (Restless and confused) - EENT Eyes: Present: PERRL ENT: hearing intact - Neck Neck: Present: normal ROM - Respiratory Respiratory effort: normal Respiratory: bilateral: diminished - Cardiovascular Rhythm: regular Heart Sounds: Present: S1 & S2 - Extremities Extremities: no ischemia, pulses intact, pulses symmetrical Peripheral Pulses: within normal limits - Abdominal General gastrointestinal: soft, non-tender, normal bowel sounds - Integumentary Integumentary: Present: clear, warm, dry - Psychiatric Psychiatric: cooperative, agitated - Neurologic Neurologic: other (Restless and confused) - Allied Health Allied health notes reviewed: nursing Results - Labs CBC & Chem 7: 03/22/21 07:46 03/22/21 07:40 Labs: Laboratory Last Values WBC 8.3 K/mm3 (4.5-11.0) 03/22/21 07:46 RBC 3.57 M/mm3 (3.65-5.03) L 03/22/21 07:46 Hgb 8.4 gm/dl (11.8-15.2) L 03/22/21 07:46 Hct 27.0 % (35.5-45.6) L 03/22/21 07:46 MCV 76 fl (84-94) L 03/22/21 07:46 MCH 24 pg (28-32) L 03/22/21 07:46 MCHC 31 % (32-34) L 03/22/21 07:46 RDW 26.1 % (13.2-15.2) H 03/22/21 07:46 Plt Count 350 K/mm3 (140-440) 03/22/21 07:46 Lymph % (Auto) 13.4 % (13.4-35.0) 03/20/21 07:30 [place] % (Auto) 9.2 % (0.0-7.3) H 03/20/21 07:30 Eos % (Auto) 0.3 % (0.0-4.3) 03/20/21 07:30 Baso % (Auto) 1.8 % (0.0-1.8) 03/20/21 07:30 Lymph # (Auto) 0.8 K/mm3 (1.2-5.4) L 03/20/21 07:30 [place] # (Auto) 0.5 K/mm3 (0.0-0.8) 03/20/21 07:30 Eos # (Auto) 0.0 K/mm3 (0.0-0.4) 03/20/21 07:30 Baso # (Auto) 0.1 K/mm3 (0.0-0.1) 03/20/21 07:30 Add Manual Diff Complete 03/22/21 07:46 Total Counted 100 03/22/21 07:46 Seg Neutrophils % 75.3 % (40.0-70.0) H 03/20/21 07:30 Seg Neuts % (Manual) 90.0 % (40.0-70.0) H 03/22/21 07:46 Band Neutrophils % 1.0 % 03/22/21 07:46 Lymphocytes % (Manual) 3.0 % (13.4-35.0) L 03/22/21 07:46 Monocytes % (Manual) 5.0 % (0.0-7.3) 03/22/21 07:46 Basophils % (Manual) 1.0 % (0.0-1.8) 03/22/21 07:46 Nucleated RBC % 1.0 % (0.0-0.9) H 03/22/21 07:46 Seg Neutrophils # 4.4 K/mm3 (1.8-7.7) 03/20/21 07:30 Seg Neutrophils # Man 7.5 K/mm3 (1.8-7.7) 03/22/21 07:46 Band Neutrophils # 0.1 K/mm3 03/22/21 07:46 Lymphocytes # (Manual) 0.2 K/mm3 (1.2-5.4) L 03/22/21 07:46 Abs React Lymphs (Man) 0.0 K/mm3 03/22/21 07:46 Monocytes # (Manual) 0.4 K/mm3 (0.0-0.8) 03/22/21 07:46 Eosinophils # (Manual) 0.0 K/mm3 (0.0-0.4) 03/22/21 07:46 Basophils # (Manual) 0.1 K/mm3 (0.0-0.1) 03/22/21 07:46 Metamyelocytes # 0.0 K/mm3 03/22/21 07:46 Myelocytes # 0.0 K/mm3 03/22/21 07:46 Promyelocytes # 0.0 K/mm3 03/22/21 07:46 Blast Cells # 0.0 K/mm3 03/22/21 07:46 WBC Morphology Not Reportable 03/22/21 07:46 Hypersegmented Neuts Not Reportable 03/22/21 07:46 Hyposegmented Neuts Not Reportable 03/22/21 07:46 Hypogranular Neuts Not Reportable 03/22/21 07:46 Smudge Cells Not Reportable 03/22/21 07:46 Toxic Granulation Not Reportable 03/22/21 07:46 Toxic Vacuolation Not Reportable 03/22/21 07:46 Dohle Bodies Not Reportable 03/22/21 07:46 Pelger-Huet Anomaly Not Reportable 03/22/21 07:46 Eduard Rods Not Reportable 03/22/21 07:46 Platelet Estimate Consistent w auto 03/22/21 07:46 Clumped Platelets Not Reportable 03/22/21 07:46 Plt Clumps, EDTA Not Reportable 03/22/21 07:46 Large Platelets Not Reportable 03/22/21 07:46 Giant Platelets Not Reportable 03/22/21 07:46 Platelet Satelliting Not Reportable 03/22/21 07:46 Plt Morphology Comment Not Reportable 03/22/21 07:46 RBC Morphology Not Reportable 03/22/21 07:46 Dimorphic RBCs Not Reportable 03/22/21 07:46 Polychromasia Few 03/22/21 07:46 Hypochromasia 1+ 03/22/21 07:46 Poikilocytosis Not Reportable 03/22/21 07:46 Anisocytosis 3+ 03/22/21 07:46 Microcytosis Not Reportable 03/22/21 07:46 Macrocytosis Not Reportable 03/22/21 07:46 Spherocytes Not Reportable 03/22/21 07:46 Pappenheimer Bodies Not Reportable 03/22/21 07:46 Sickle Cells Not Reportable 03/22/21 07:46 Target Cells Not Reportable 03/22/21 07:46 Tear Drop Cells Not Reportable 03/22/21 07:46 Ovalocytes Not Reportable 03/22/21 07:46 Helmet Cells Not Reportable 03/22/21 07:46 Schneider-Valeria Bodies Not Reportable 03/22/21 07:46 [place] Rings Not Reportable 03/22/21 07:46 Lena Cells Not Reportable 03/22/21 07:46 Bite Cells Not Reportable 03/22/21 07:46 Crenated Cell Not Reportable 03/22/21 07:46 Elliptocytes Not Reportable 03/22/21 07:46 Acanthocytes (Spur) Not Reportable 03/22/21 07:46 Rouleaux Not Reportable 03/22/21 07:46 Hemoglobin C Crystals Not Reportable 03/22/21 07:46 Schistocytes Not Reportable 03/22/21 07:46 Malaria parasites Not Reportable 03/22/21 07:46 Herminio Bodies Not Reportable 03/22/21 07:46 Hem Pathologist Commnt No 03/22/21 07:46 PT 14.3 Sec. (12.2-14.9) 03/20/21 07:30 INR 1.00 (0.87-1.13) 03/20/21 07:30 APTT 28.2 Sec. (24.2-36.6) 03/20/21 07:30 Sodium 137 mmol/L (137-145) 03/22/21 07:40 Potassium 3.1 mmol/L (3.6-5.0) L 03/22/21 07:40 Chloride 103.0 mmol/L (98-107) 03/22/21 07:40 Carbon Dioxide 19 mmol/L (22-30) L 03/22/21 07:40 Anion Gap 18 mmol/L 03/22/21 07:40 BUN 11 mg/dL (9-20) 03/22/21 07:40 Creatinine 0.6 mg/dL (0.8-1.3) L 03/22/21 07:40 Estimated GFR > 60 ml/min 03/22/21 07:40 BUN/Creatinine Ratio 18 % 03/22/21 07:40 Glucose 74 mg/dL (75-100) L 03/22/21 07:40 POC Glucose 73 mg/dL (70-105) 03/22/21 07:38 Calcium 8.4 mg/dL (8.4-10.2) 03/22/21 07:40 Phosphorus 3.70 mg/dL (2.5-4.5) 03/22/21 07:46 Magnesium 2.00 mg/dL (1.7-2.3) 03/22/21 07:40 Total Bilirubin 0.40 mg/dL (0.1-1.2) 03/20/21 07:30 AST 36 units/L (5-40) 03/20/21 07:30 ALT 23 units/L (7-56) 03/20/21 07:30 Alkaline Phosphatase 41 units/L (35-129) 03/20/21 07:30 Total Creatine Kinase 400 units/L (55-170) H 03/20/21 07:30 Total Protein 6.9 g/dL (6.3-8.2) 03/20/21 07:30 Albumin 3.9 g/dL (3.9-5) 03/20/21 07:30 Albumin/Globulin Ratio 1.3 % 03/20/21 07:30 TSH 2.410 mlU/mL (0.270-4.200) 03/20/21 07:30 Urine Color Yellow (Yellow) 03/20/21 09: Urine Turbidity Clear (Clear) 03/20/21 09: Urine pH 6.0 (5.0-7.0) 03/20/21 09: Ur Specific [place] 1.015 (1.003-1.030) 03/20/21 09: Urine Protein <15 mg/dl mg/dL (Negative) 03/20/21 09: Urine Glucose (UA) Neg mg/dL (Negative) 03/20/21 09: Urine Ketones Neg mg/dL (Negative) 03/20/21: Urine Blood Neg (Negative) 03/20/21: Urine Nitrite Neg (Negative) 03/20/21 09: Urine Bilirubin Neg (Negative) 03/20/21 09: Urine Urobilinogen < 2.0 mg/dL (<2.0) 03/20/21 09: Ur Leukocyte Esterase Neg (Negative) 03/20/21 09: Urine WBC (Auto) < 1.0 /HPF (0.0-6.0) 03/20/21 09: Urine RBC (Auto) < 1.0 /HPF (0.0-6.0) 03/20/21 09: Salicylates < 0.3 mg/dL (2.8-20.0) L 03/20/21 07:30 Urine Opiates Screen Negative 03/20/21 09: Urine Methadone Screen Negative 03/20/21 09: Acetaminophen 5.0 ug/mL (10.0-30.0) L 03/20/21 07:30 Ur Barbiturates Screen Negative 03/20/21 09: Ur Phencyclidine Scrn Negative 03/20/21 09: Ur Amphetamines Screen Negative 03/20/21 09: U Benzodiazepines Scrn Negative 03/20/21 09: Urine Cocaine Screen Negative 03/20/21 09:27 U Marijuana (THC) Screen Negative 03/20/21 09:27 Drugs of Abuse Note Disclamer 03/20/21 09: Plasma/Serum Alcohol 0.09 % (0-0.07) H 03/20/21 07:30 Blood Type O NEGATIVE 03/20/21 07:25 Antibody Screen Negative 03/20/21 07:25 Crossmatch See Detail 03/20/21 07:25 Culver/IV: Voiding Method Condom Catheter Active Medications - Current Medications Current Medications: Generic Name Dose Route Start Last Admin Trade Name Freq PRN Reason Stop Dose Admin Clonidine HCl 0.2 mg 03/22/21 10:00 03/22/21 10:44 Clonidine Tts 0.2 Mg/24 Hr Patch TD Not Given QWEEK BOYD Pantoprazole Sodium 80 mg/ 100 mls @ 10 mls/hr 03/20/21 08:00 03/22/21 09:44 Sodium Chloride IV 8 mg/hr DIRECT BOYD 10 mls/hr Administration 8 MG/HR Dexmedetomidine HCl 200 mcg/ 50 mls @ 4.082 mls/hr 03/22/21 09:00 03/22/21 10:35 Sodium Chloride IV 0.5 mcg/kg/hr TITRATE BOYD 10.206 mls/hr Titration Protocol 0.2 MCG/KG/HR Folic Acid 1 mg/ Sodium 50.2 mls @ 200.8 mls/hr 03/22/21 10:00 03/22/21 09:47 Chloride IV 200.8 mls/hr QDAY BOYD Administration Thiamine HCl 100 mg/ Sodium 51 mls @ 100 mls/hr 03/22/21 10:00 03/22/21 09:45 Chloride IV 100 mls/hr QDAY BOYD Administration Potassium Chloride 10 meq in 100 mls @ 100 mls/hr 03/22/21 09:00 03/22/21 09:49 Kcl 10meq/100ml IV 03/22/21 14:59 100 mls/hr Q1H BOYD Administration Dextrose/Sodium Chloride 1,000 mls @ 125 mls/hr 03/22/21 10:00 D5/0.45ns IV DIRECT BOYD Lorazepam 2 mg 03/20/21 07:30 03/21/21 04:43 Lorazepam 2 Mg/Ml Vial IV 2 mg Q1HR PRN Administration Derik 8-15 Lorazepam 4 mg 03/20/21 07:30 03/22/21 07:05 Lorazepam 2 Mg/Ml Vial IV 4 mg Q1HR PRN Administration Derik 16-25 Nutrition/Malnutrition Assess - Dietary Evaluation Nutrition/Malnutrition Findings: Nutrition Notes Start: 03/21/21 12 :54 Freq: Status: Active Protocol: Document 03/21/21 12:54 EVA (Rec: 03/21/21 12:59 EVA [id number]) Nutrition Notes Need for Assessment 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 Recently transferred to ICU sec to CIWA score and worsening EtOH withdrawal symptoms. He was admitted with c/o hematemesis and blood in stool. Burn Absent Trauma Absent GI Symptoms Other Minimum of two criteria No #1 Nutrition Diagnosis Altered GI function Etiology hx of EtOH dependency, GIB As Evidenced by Signs and Symptoms pt NPO Is patient on ventilator? No Is Patient Ambulatory and/or Out of Bed No REE-([facility]-confined to bed) 2004.920 Calculation Used for Recommendations [facility] Additional Notes Pro needs 1.2-2g/k-163g/ day Fluid needs 1ml/kcal Nutrition Intervention Change Diet Order: Diet advancement when medically feasible Goal #1 Diet advancement to meet nutrient needs Anticipated Discharge Needs: Unable to identify at this time Follow-Up By: 03/23/21 Additional Comments F/U: diet advancement, POC <DENISHA IGLESIAS R - Last Filed: 03/23/21 00:09> Assessment and Plan Assessment and plan: I saw and evaluated the patient on 03/22/21. I agree with the findings and the plan of care as documented in the Nurse Practitioner's~note, Hospitalist Physical - Constitutional Vitals: Temp Pulse Resp BP Pulse Ox 98.1 F 59 L 14 136/78 100 03/22/21 12:00 03/22/21 22:31 03/22/21 22:31 03/22/21 22:31 03/22/21 22:31 Results - Labs CBC & Chem 7: 03/22/21 22:14 03/22/21 07:40 Labs: Laboratory Last Values WBC 8.3 K/mm3 (4.5-11.0) 03/22/21 07:46 RBC 3.57 M/mm3 (3.65-5.03) L 03/22/21 07:46 Hgb 8.5 gm/dl (11.8-15.2) L 03/22/21 22:14 Hct 27.9 % (35.5-45.6) L 03/22/21 22:14 MCV 76 fl (84-94) L 03/22/21 07:46 MCH 24 pg (28-32) L 03/22/21 07:46 MCHC 31 % (32-34) L 03/22/21 07:46 RDW 26.1 % (13.2-15.2) H 03/22/21 07:46 Plt Count 350 K/mm3 (140-440) 03/22/21 07:46 Lymph % (Auto) 13.4 % (13.4-35.0) 03/20/21 07:30 [place] % (Auto) 9.2 % (0.0-7.3) H 03/20/21 07:30 Eos % (Auto) 0.3 % (0.0-4.3) 03/20/21 07:30 Baso % (Auto) 1.8 % (0.0-1.8) 03/20/21 07:30 Lymph # (Auto) 0.8 K/mm3 (1.2-5.4) L 03/20/21 07:30 [place] # (Auto) 0.5 K/mm3 (0.0-0.8) 03/20/21 07:30 Eos # (Auto) 0.0 K/mm3 (0.0-0.4) 03/20/21 07:30 Baso # (Auto) 0.1 K/mm3 (0.0-0.1) 03/20/21 07:30 Add Manual Diff Complete 03/22/21 07:46 Total Counted 100 03/22/21 07:46 Seg Neutrophils % 75.3 % (40.0-70.0) H 03/20/21 07:30 Seg Neuts % (Manual) 90.0 % (40.0-70.0) H 03/22/21 07:46 Band Neutrophils % 1.0 % 03/22/21 07:46 Lymphocytes % (Manual) 3.0 % (13.4-35.0) L 03/22/21 07:46 Monocytes % (Manual) 5.0 % (0.0-7.3) 03/22/21 07:46 Basophils % (Manual) 1.0 % (0.0-1.8) 03/22/21 07:46 Nucleated RBC % 1.0 % (0.0-0.9) H 03/22/21 07:46 Seg Neutrophils # 4.4 K/mm3 (1.8-7.7) 03/20/21 07:30 Seg Neutrophils # Man 7.5 K/mm3 (1.8-7.7) 03/22/21 07:46 Band Neutrophils # 0.1 K/mm3 03/22/21 07:46 Lymphocytes # (Manual) 0.2 K/mm3 (1.2-5.4) L 03/22/21 07:46 Abs React Lymphs (Man) 0.0 K/mm3 03/22/21 07:46 Monocytes # (Manual) 0.4 K/mm3 (0.0-0.8) 03/22/21 07:46 Eosinophils # (Manual) 0.0 K/mm3 (0.0-0.4) 03/22/21 07:46 Basophils # (Manual) 0.1 K/mm3 (0.0-0.1) 03/22/21 07:46 Metamyelocytes # 0.0 K/mm3 03/22/21 07:46 Myelocytes # 0.0 K/mm3 03/22/21 07:46 Promyelocytes # 0.0 K/mm3 03/22/21 07:46 Blast Cells # 0.0 K/mm3 03/22/21 07:46 WBC Morphology Not Reportable 03/22/21 07:46 Hypersegmented Neuts Not Reportable 03/22/21 07:46 Hyposegmented Neuts Not Reportable 03/22/21 07:46 Hypogranular Neuts Not Reportable 03/22/21 07:46 Smudge Cells Not Reportable 03/22/21 07:46 Toxic Granulation Not Reportable 03/22/21 07:46 Toxic Vacuolation Not Reportable 03/22/21 07:46 Dohle Bodies Not Reportable 03/22/21 07:46 Pelger-Huet Anomaly Not Reportable 03/22/21 07:46 Eduard Rods Not Reportable 03/22/21 07:46 Platelet Estimate Consistent w auto 03/22/21 07:46 Clumped Platelets Not Reportable 03/22/21 07:46 Plt Clumps, EDTA Not Reportable 03/22/21 07:46 Large Platelets Not Reportable 03/22/21 07:46 Giant Platelets Not Reportable 03/22/21 07:46 Platelet Satelliting Not Reportable 03/22/21 07:46 Plt Morphology Comment Not Reportable 03/22/21 07:46 RBC Morphology Not Reportable 03/22/21 07:46 Dimorphic RBCs Not Reportable 03/22/21 07:46 Polychromasia Few 03/22/21 07:46 Hypochromasia 1+ 03/22/21 07:46 Poikilocytosis Not Reportable 03/22/21 07:46 Anisocytosis 3+ 03/22/21 07:46 Microcytosis Not Reportable 03/22/21 07:46 Macrocytosis Not Reportable 03/22/21 07:46 Spherocytes Not Reportable 03/22/21 07:46 Pappenheimer Bodies Not Reportable 03/22/21 07:46 Sickle Cells Not Reportable 03/22/21 07:46 Target Cells Not Reportable 03/22/21 07:46 Tear Drop Cells Not Reportable 03/22/21 07:46 Ovalocytes Not Reportable 03/22/21 07:46 Helmet Cells Not Reportable 03/22/21 07:46 Schneider-Valeria Bodies Not Reportable 03/22/21 07:46 [place] Rings Not Reportable 03/22/21 07:46 Lena Cells Not Reportable 03/22/21 07:46 Bite Cells Not Reportable 03/22/21 07:46 Crenated Cell Not Reportable 03/22/21 07:46 Elliptocytes Not Reportable 03/22/21 07:46 Acanthocytes (Spur) Not Reportable 03/22/21 07:46 Rouleaux Not Reportable 03/22/21 07:46 Hemoglobin C Crystals Not Reportable 03/22/21 07:46 Schistocytes Not Reportable 03/22/21 07:46 Malaria parasites Not Reportable 03/22/21 07:46 Herminio Bodies Not Reportable 03/22/21 07:46 Hem Pathologist Commnt No 03/22/21 07:46 PT 14.3 Sec. (12.2-14.9) 03/20/21 07:30 INR 1.00 (0.87-1.13) 03/20/21 07:30 APTT 28.2 Sec. (24.2-36.6) 03/20/21 07:30 Sodium 137 mmol/L (137-145) 03/22/21 07:40 Potassium 3.1 mmol/L (3.6-5.0) L 03/22/21 07:40 Chloride 103.0 mmol/L (98-107) 03/22/21 07:40 Carbon Dioxide 19 mmol/L (22-30) L 03/22/21 07:40 Anion Gap 18 mmol/L 03/22/21 07:40 BUN 11 mg/dL (9-20) 03/22/21 07:40 Creatinine 0.6 mg/dL (0.8-1.3) L 03/22/21 07:40 Estimated GFR > 60 ml/min 03/22/21 07:40 BUN/Creatinine Ratio 18 % 03/22/21 07:40 Glucose 74 mg/dL (75-100) L 03/22/21 07:40 POC Glucose 114 mg/dL (70-105) H 03/22/21 17:03 Calcium 8.4 mg/dL (8.4-10.2) 03/22/21 07:40 Phosphorus 3.70 mg/dL (2.5-4.5) 03/22/21 07:46 Magnesium 2.00 mg/dL (1.7-2.3) 03/22/21 07:40 Total Bilirubin 0.40 mg/dL (0.1-1.2) 03/20/21 07:30 AST 36 units/L (5-40) 03/20/21 07:30 ALT 23 units/L (7-56) 03/20/21 07:30 Alkaline Phosphatase 41 units/L (35-129) 03/20/21 07:30 Total Creatine Kinase 400 units/L (55-170) H 03/20/21 07:30 Total Protein 6.9 g/dL (6.3-8.2) 03/20/21 07:30 Albumin 3.9 g/dL (3.9-5) 03/20/21 07:30 Albumin/Globulin Ratio 1.3 % 03/20/21 07: TSH 2.410 mlU/mL (0.270-4.200) 03/20/21 07:30 Urine Color Yellow (Yellow) 03/20/21 09: Urine Turbidity Clear (Clear) 03/20/21 09: Urine pH 6.0 (5.0-7.0) 03/20/21: Ur Specific [place] 1.015 (1.003-1.030) 03/20/21: Urine Protein <15 mg/dl mg/dL (Negative) 03/20/21: Urine Glucose (UA) Neg mg/dL (Negative) 03/20/21 Urine Ketones Neg mg/dL (Negative) 03/20/21: Urine Blood Neg (Negative) 03/20/21: Urine Nitrite Neg (Negative) 03/20/21: Urine Bilirubin Neg (Negative) 03/20/21: Urine Urobilinogen < 2.0 mg/dL (<2.0) 03/20/21: Ur Leukocyte Esterase Neg (Negative) 03/20/21: Urine WBC (Auto) < 1.0 /HPF (0.0-6.0) 03/20/21: Urine RBC (Auto) < 1.0 /HPF (0.0-6.0) 03/20/21: Salicylates < 0.3 mg/dL (2.8-20.0) L 03/20/21 07:30 Urine Opiates Screen Negative 03/20/21: Urine Methadone Screen Negative 03/20/21: Acetaminophen 5.0 ug/mL (10.0-30.0) L 03/20/21 07:30 Ur Barbiturates Screen Negative 03/20/21: Ur Phencyclidine Scrn Negative 03/20/21: Ur Amphetamines Screen Negative 03/20/21: U Benzodiazepines Scrn Negative 03/20/21: Urine Cocaine Screen Negative 03/20/21: U Marijuana (THC) Screen Negative 03/20/21: Drugs of Abuse Note Disclamer 03/20/21: Plasma/Serum Alcohol 0.09 % (0-0.07) H 03/20/21 07:30 Blood Type O NEGATIVE 03/20/21 07:25 Antibody Screen Negative 03/20/21 07:25 Crossmatch See Detail 03/20/21 07:25 Culver/IV: Voiding Method Condom Catheter Active Medications - Current Medications Current Medications: Generic Name Dose Route Start Last Admin Trade Name Freq PRN Reason Stop Dose Admin Clonidine HCl 0.2 mg 03/22/21 10:00 03/22/21 10:44 Clonidine Tts 0.2 Mg/24 Hr Patch TD Not Given QWEEK BOYD Dextrose 50 ml 03/22/21 11:13 Dextrose 50% In Water (25gm) 50 Ml Syringe IV Q30MIN PRN Hypoglycemia Protocol Pantoprazole Sodium 80 mg/ 100 mls @ 10 mls/hr 03/20/21 08:00 03/22/21 09:44 Sodium Chloride IV 8 mg/hr DIRECT BOYD 10 mls/hr Administration 8 MG/HR Dexmedetomidine HCl 200 mcg/ 50 mls @ 4.082 mls/hr 03/22/21 09:00 03/22/21 15:00 Sodium Chloride IV 0.2 mcg/kg/hr TITRATE BOYD 4.082 mls/hr Titration Protocol 0.2 MCG/KG/HR Folic Acid 1 mg/ Sodium 50.2 mls @ 200.8 mls/hr 03/22/21 10:00 03/22/21 10:02 Chloride IV Infused QDAY BOYD Infusion Thiamine HCl 100 mg/ Sodium 51 mls @ 100 mls/hr 03/22/21 10:00 03/22/21 10:16 Chloride IV Infused QDAY BOYD Infusion Dextrose/Sodium Chloride 1,000 mls @ 125 mls/hr 03/22/21 10:00 03/22/21 09:45 D5/0.45ns IV 125 mls/hr DIRECT BOYD Administration Lorazepam 2 mg 03/20/21 07:30 03/21/21 04:43 Lorazepam 2 Mg/Ml Vial IV 2 mg Q1HR PRN Administration ROSENDO-Xavi 8-15 Lorazepam 4 mg 03/20/21 07:30 03/22/21 07:05 Lorazepam 2 Mg/Ml Vial IV 4 mg Q1HR PRN Administration MEHDIWA-Ar 16-25 Nutrition/Malnutrition Assess - Dietary Evaluation Nutrition/Malnutrition Findings: Nutrition Notes Start: 03/21/21 12:54 Freq: Status: Active Protocol: Document 03/21/21 12:54 EVA (Rec: 03/21/21 12:59 EVA [id number]) Nutrition Notes Need for Assessment 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 Recently transferred to ICU sec to CIWA score and worsening EtOH withdrawal symptoms. He was admitted with c/o hematemesis and blood in stool. Burn Absent Trauma Absent GI Symptoms Other Minimum of two criteria No #1 Nutrition Diagnosis Altered GI function Etiology hx of EtOH dependency, GIB As Evidenced by Signs and Symptoms pt NPO Is patient on ventilator? No Is Patient Ambulatory and/or Out of Bed No REE-([facility]-confined to bed) [phone] Calculation Used for Recommendations [facility] Additional Notes Pro needs 1.2-2g/k-163g/ day Fluid needs 1ml/kcal Nutrition Intervention Change Diet Order: Diet advancement when medically feasible Goal #1 Diet advancement to meet nutrient needs Anticipated Discharge Needs: Unable to identify at this time Follow-Up By: 03/23/21 Additional Comments F/U: diet advancement, POC
[2021-03-22] MEDS ORDERED: DEXTROSE 50% IN WATER (25GM) 50 ML SYRINGE IV PRN (11:13)
--- NOTE | 2021-03-22 15:30 | Gastroenterology Progress Note ---
Assessment and Plan This is a 41 yo male with h/o significant alcohol use admitted for possible alcohol withdrawal seizure. GI consulted for GI bleed with melena and hematemesis. Found to have Hgb down to 4.4. # Anemia # GI bleed - reported h/o melena and hematemesis prior to admission. - Hgb down to 4.4 on admission s/p 4 units of PRBC. - no overt signs of GI bleeding since admission. - going through alcohol withdrawal with high CIWA score. Transferred to ICU. - rectal exam on 03/21/2021 with light brown stool. No BM since admission. - no signs of cirrhosis on labs or on exam. - Hgb went up to 9 post transfusion and down trend to 8.4 today. - remains HD stable. - going through alcohol withdrawal and now on precedex. - could not reach any family until this afternoon. Spoke with brother, [place] and updated on the patient's condition. Consent obtained for EGD. Rec - hold off EGD at this time given alcohol withdrawal and no signs of active GI bleeding. - cont with PPI IV drip - monitor serial H/H and transfuse as needed Hgb goal >7. - monitor for signs of active GI bleeding. - will plan for EGD tomorrow. Keep NPO. Consent obtained from brother on the phone via senior java programmer analyst. phone # [phone] - will follow. Subjective Date of service: 03/22/21 Interval history: Patient continued to be in alcohol withdrawal this morning requiring ativan every hour overnight. Started on precedex drip today. No BM overnight. Unable to reach any family this morning. Objective - Constitutional Vitals: Temp Pulse Resp BP Pulse Ox 98.1 F 60 13 129/78 99 03/22/21 12:00 03/22/21 15:00 03/22/21 15:00 03/22/21 15:00 03/22/21 15:00 General appearance: no acute distress - Respiratory Respiratory effort: normal - Cardiovascular Rhythm: regular Heart Sounds: Present: S1 & S2 - Gastrointestinal General gastrointestinal: Present: soft, non-tender, non-distended - Neurologic Neurological: other (sedated) - Labs CBC & Chem 7: 03/22/21 07:46 03/22/21 07:40 Labs: Laboratory Results - last 24 hr 1203/22/21 03/22/21 18:32 07:38 07:40 WBC RBC Hgb 8.8 L Hct 29.1 L MCV MCH MCHC RDW Plt Count Add Manual Diff Total Counted Seg Neuts % (Manual) Band Neutrophils % Lymphocytes % (Manual) Monocytes % (Manual) Basophils % (Manual) Nucleated RBC % Seg Neutrophils # Man Band Neutrophils # Lymphocytes # (Manual) Abs React Lymphs (Man) Monocytes # (Manual) Eosinophils # (Manual) Basophils # (Manual) Metamyelocytes # Myelocytes # Promyelocytes # Blast Cells # WBC Morphology Hypersegmented Neuts Hyposegmented Neuts Hypogranular Neuts Smudge Cells Toxic Granulation Toxic Vacuolation Dohle Bodies Pelger-Huet Anomaly Eduard Rods Platelet Estimate Clumped Platelets Plt Clumps, EDTA Large Platelets Giant Platelets Platelet Satelliting Plt Morphology Comment RBC Morphology Dimorphic RBCs Polychromasia Hypochromasia Poikilocytosis Anisocytosis Microcytosis Macrocytosis Spherocytes Pappenheimer Bodies Sickle Cells Target Cells Tear Drop Cells Ovalocytes Helmet Cells [place] Bodies [place] Rings [place] Cells Bite Cells Crenated Cell Elliptocytes Acanthocytes (Spur) Rouleaux Hemoglobin C Crystals Schistocytes Malaria parasites Herminio Bodies Hem Pathologist Commnt Sodium 137 Potassium 3.1 L Chloride 103.0 Carbon Dioxide 19 L Anion Gap 18 BUN 11 Creatinine 0.6 L Estimated GFR > 60 BUN/Creatinine Ratio 18 Glucose 74 L POC Glucose 73 Calcium 8.4 Phosphorus Magnesium 2.00 03/22/21 03/22/21 03/22/21 07:46 07:46 11:26 WBC 8.3 RBC 3.57 L Hgb 8.4 L Hct 27.0 L MCV 76 L MCH 24 L MCHC 31 L RDW 26.1 H Plt Count 350 Add Manual Diff Complete Total Counted 100 Seg Neuts % (Manual) 90.0 H Band Neutrophils % 1.0 Lymphocytes % (Manual) 3.0 L Monocytes % (Manual) 5.0 Basophils % (Manual) 1.0 Nucleated RBC % 1.0 H Seg Neutrophils # Man 7.5 Band Neutrophils # 0.1 Lymphocytes # (Manual) 0.2 L Abs React Lymphs (Man) 0.0 Monocytes # (Manual) 0.4 Eosinophils # (Manual) 0.0 Basophils # (Manual) 0.1 Metamyelocytes # 0.0 Myelocytes # 0.0 Promyelocytes # 0.0 Blast Cells # 0.0 WBC Morphology Not Reportable Hypersegmented Neuts Not Reportable Hyposegmented Neuts Not Reportable Hypogranular Neuts Not Reportable Smudge Cells Not Reportable Toxic Granulation Not Reportable Toxic Vacuolation Not Reportable Dohle Bodies Not Reportable Pelger-Huet Anomaly Not Reportable Eduard Rods Not Reportable Platelet Estimate Consistent w auto Clumped Platelets Not Reportable Plt Clumps, EDTA Not Reportable Large Platelets Not Reportable Giant Platelets Not Reportable Platelet Satelliting Not Reportable Plt Morphology Comment Not Reportable RBC Morphology Not Reportable Dimorphic RBCs Not Reportable Polychromasia Few Hypochromasia 1+ Poikilocytosis Not Reportable Anisocytosis 3+ Microcytosis Not Reportable Macrocytosis Not Reportable Spherocytes Not Reportable Pappenheimer Bodies Not Reportable Sickle Cells Not Reportable Target Cells Not Reportable Tear Drop Cells Not Reportable Ovalocytes Not Reportable Helmet Cells Not Reportable [place] Bodies Not Reportable [place] Rings Not Reportable [place] Cells Not Reportable Bite Cells Not Reportable Crenated Cell Not Reportable Elliptocytes Not Reportable Acanthocytes (Spur) Not Reportable Rouleaux Not Reportable Hemoglobin C Crystals Not Reportable Schistocytes Not Reportable Malaria parasites Not Reportable Herminio Bodies Not Reportable Hem Pathologist Commnt No Sodium Potassium Chloride Carbon Dioxide Anion Gap BUN Creatinine Estimated GFR BUN/Creatinine Ratio Glucose POC Glucose 76 Calcium Phosphorus 3.70 Magnesium
[2021-03-22 16:25] LABS: Hematocrit 26.7 % (35.5-45.6); Hemoglobin 8.1 gm/dl (11.8-15.2)
[2021-03-22 22:36] LABS: Hematocrit 27.9 % (35.5-45.6); Hemoglobin 8.5 gm/dl (11.8-15.2)
[2021-03-23 01:20] LABS: Hematocrit 28.2 % (35.5-45.6); Hemoglobin 8.7 gm/dl (11.8-15.2)
[2021-03-23] MEDS: D5W/0.45% NACL 1,000 ML IV SCH ×2 (02:29→09:01)
[2021-03-23] MEDS: LORazepam 2 MG/ML VIAL IV PRN ×2 (04:08→11:29)
--- NOTE | 2021-03-23 05:02 | XRay Report ---
CHEST 1 VIEW 03/23/2021 3:46 AM INDICATION / CLINICAL INFORMATION: F/U right opacity. COMPARISON: 03/20/2021 FINDINGS: SUPPORT DEVICES: None. HEART / MEDIASTINUM: Unchanged LUNGS / PLEURA: Low lung volumes. No focal airspace consolidation. Improved right basilar volume loss . No pneumothorax. ADDITIONAL FINDINGS: No significant additional findings. IMPRESSION: Improved right basilar opacity. Low lung volumes remain without new airspace consolidation. Signer Name: Aston Haro MD Signed: 03/23/2021 4:57 AM Workstation Name: [id number]
[2021-03-23 05:40] LABS: Hemoglobin 8.7 gm/dl (11.8-15.2); Mean Corpuscular HGB Conc 31 % (32-34); Mean Corpuscular Volume 76 fl (84-94); Platelet Count 353 K/mm3 (140-440); Red Blood Count 3.69 M/mm3 (3.65-5.03)
[2021-03-23 05:43] LABS: Red Cell Distribution Width 25.9 % (13.2-15.2)
[2021-03-23 05:50] LABS: Blood Urea Nitrogen 7 mg/dL (9-20); Calcium 8.5 mg/dL (8.4-10.2); Hemolysis Index 3
[2021-03-23 05:55] LABS: BUN/Creatinine Ratio 12
--- NOTE | 2021-03-23 07:43 | Consultation ---
History of Present Illness Consult date: 03/23/21 Requesting physician: DENISHA IGLESIAS Reason for consult: other (Alcohol withdrawal) History of present illness: HISTORY PER MEDICAL RECORDS. PATIENT UNRELIABLE- S/P ATIVAN AND IS TREMULOUS The patient is a 41-year-old gentleman with a history of alcohol abuse and GI bleed who reported being admitted to a hospital in [place] a few months ago, for GI bleed. He does not know what hospital he was admitted to, nor does he know the details of his diagnosis. He presented to the ER with a complaint of vomiting blood, bloody stool, and possible seizure. He believes that he had a seizure at home on the bed. He stated his last alcoholic beverage was the day prior to presentation. The patient denied headache, neck pain, chest pain, abdominal pain, muscle pain and suicidality. The patient thinks that either himself or his brother called 911 because of a possible seizure . Patient states that he drinks 4 beers daily. Work-up in the ER showed hemoglobin of 4.4, sodium 123 plasma alcohol level 0.09. Patient was given IV fluid, initiated on blood transfusion, placed on CIWA protocol, GI consulted and call for admission for further evaluation and management of severe anemia, acute GI bleed. Awaiting EGD, ICU consult placed as he is requiring escalating dose of Ativan. Precedex was initiated. Patient seen and examined. Vitals, labs, medications, chart and imaging reviewed. In restrains, tremulous Past History Past Medical History: other (Alcohol abuse) Past Surgical History: denies: No surgical history Social history: alcohol abuse Family history: no significant family history Medications and Allergies Allergies Allergy/AdvReac Type Severity Reaction Status Date / Time No Known Allergies Allergy Unverified 03/20/21 07:13 Home Medications Medication Instructions Recorded Confirmed Last Taken Type No Known Home Medications [No 03/20/21 03/20/21 Unknown History Reported Home Medications] Active Meds: Active Medications Clonidine HCl (Clonidine Tts 0.2 Mg/24 Hr Patch) 0.2 mg TD QWEEK BOYD Last Admin: 03/22/21 10:44 Dose: Not Given Documented by: Dextrose (Dextrose 50% In Water (25gm) 50 Ml Syringe) 50 ml IV Q30MIN PRN; Prot ocol PRN Reason: Hypoglycemia Pantoprazole Sodium 80 mg/ (Sodium Chloride) 100 mls @ 10 mls/hr IV DIRECT BOYD Last Admin: 03/22/21 20:00 Dose: 8 mg/hr, 10 mls/hr Documented by: Dexmedetomidine HCl 200 mcg/ (Sodium Chloride) 50 mls @ 4.082 mls/hr IV TITRATE BOYD; Protocol Last Titration: 03/23/21 02:18 Dose: 0.2 mcg/kg/hr, 4.082 mls/hr Documented by: Folic Acid 1 mg/ Sodium (Chloride) 50.2 mls @ 200.8 mls/hr IV QDAY BOYD Last Infusion: 03/22/21 10:02 Dose: Infused Documented by: Thiamine HCl 100 mg/ Sodium (Chloride) 51 mls @ 100 mls/hr IV QDAY BOYD Last Infusion: 03/22/21 10:16 Dose: Infused Documented by: Dextrose/Sodium Chloride (D5/0.45ns) 1,000 mls @ 125 mls/hr IV DIRECT BOYD Last Admin: 03/23/21 02:29 Dose: 125 mls/hr Documented by: Potassium Chloride (Kcl 10meq/100ml) 10 meq in 100 mls @ 100 mls/hr IV Q1H BOYD Stop: 03/23/21 11:59 Lorazepam (Lorazepam 2 Mg/Ml Vial) 2 mg IV Q1HR PRN PRN Reason: CIWA-Ar 8-15 Last Admin: 03/23/21 04:08 Dose: 2 mg Documented by: Lorazepam (Lorazepam 2 Mg/Ml Vial) 4 mg IV Q1HR PRN PRN Reason: CIWA-Ar 16-25 Last Admin: 03/22/21 07:05 Dose: 4 mg Documented by: Review of Systems ROS unobtainable: due to mental status Physical Examination Vital signs: Vital Signs Temp Pulse Resp BP Pulse Ox 98.8 F 100 H 17 118/64 99 03/20/21 06:58 03/20/21 06:58 03/20/21 06:58 03/20/21 06:58 03/20/21 06:58 Results - Laboratory Findings CBC and BMP: 03/24/21 04:44 03/24/21 04:44 PT/INR, D-dimer PT 14.3 Sec. (12.2-14.9) 03/20/21 07:30 INR 1.00 (0.87-1.13) 03/20/21 07:30 Abnormal lab findings: Abnormal Labs 03/20/21 03/20/21 03/20/21 07:25 07:30 07:30 RBC 2.39 L Hgb 4.4 L* Hct 15.1 L* MCV 63 L MCH 18 L MCHC 29 L RDW 22.4 H [place] % (Auto) 9.2 H Lymph # (Auto) 0.8 L Seg Neutrophils % 75.3 H Seg Neuts % (Manual) Lymphocytes % (Manual) Nucleated RBC % Lymphocytes # (Manual) Sodium 132 L Potassium Chloride 97.6 L Carbon Dioxide 21 L BUN 23 H Creatinine 0.7 L Glucose 128 H POC Glucose Total Creatine Kinase Salicylates Acetaminophen Plasma/Serum Alcohol Crossmatch See Detail 03/20/21 03/20/21 03/20/21 07:30 07:30 07:30 RBC Hgb Hct MCV MCH MCHC RDW [place] % (Auto) Lymph # (Auto) Seg Neutrophils % Seg Neuts % (Manual) Lymphocytes % (Manual) Nucleated RBC % Lymphocytes # (Manual) Sodium Potassium Chloride Carbon Dioxide BUN Creatinine Glucose POC Glucose Total Creatine Kinase 400 H Salicylates < 0.3 L Acetaminophen 5.0 L Plasma/Serum Alcohol Crossmatch 03/20/21 03/20/21 03/20/21 07:30 15:46 23:50 RBC Hgb 5.2 L* 6.3 L Hct 17.8 L* 20.5 L MCV MCH MCHC RDW [place] % (Auto) Lymph # (Auto) Seg Neutrophils % Seg Neuts % (Manual) Lymphocytes % (Manual) Nucleated RBC % Lymphocytes # (Manual) Sodium Potassium Chloride Carbon Dioxide BUN Creatinine Glucose POC Glucose Total Creatine Kinase Salicylates Acetaminophen Plasma/Serum Alcohol 0.09 H Crossmatch 03/21/21 03/21/21 03/21/21 10:31 10:31 10:31 RBC Hgb 9.1 L 9.1 L Hct 29.0 L D 29.5 L MCV 75 L MCH 23 L MCHC 31 L RDW 26.8 H [place] % (Auto) Lymph # (Auto) Seg Neutrophils % Seg Neuts % (Manual) Lymphocytes % (Manual) Nucleated RBC % Lymphocytes # (Manual) Sodium 136 L Potassium 3.2 L Chloride Carbon Dioxide 20 L BUN Creatinine 0.6 L Glucose POC Glucose Total Creatine Kinase Salicylates Acetaminophen Plasma/Serum Alcohol Crossmatch 03/21/21 03/22/21 03/22/21 18:32 07:40 07:46 RBC 3.57 L Hgb 8.8 L 8.4 L Hct 29.1 L 27.0 L MCV 76 L MCH 24 L MCHC 31 L RDW 26.1 H [place] % (Auto) Lymph # (Auto) Seg Neutrophils % Seg Neuts % (Manual) 90.0 H Lymphocytes % (Manual) 3.0 L Nucleated RBC % 1.0 H Lymphocytes # (Manual) 0.2 L Sodium Potassium 3.1 L Chloride Carbon Dioxide 19 L BUN Creatinine 0.6 L Glucose 74 L POC Glucose Total Creatine Kinase Salicylates Acetaminophen Plasma/Serum Alcohol Crossmatch 03/22/21 03/22/21 03/22/21 15:53 17:03 22:14 RBC Hgb 8.1 L 8.5 L Hct 26.7 L 27.9 L MCV MCH MCHC RDW [place] % (Auto) Lymph # (Auto) Seg Neutrophils % Seg Neuts % (Manual) Lymphocytes % (Manual) Nucleated RBC % Lymphocytes # (Manual) Sodium Potassium Chloride Carbon Dioxide BUN Creatinine Glucose POC Glucose 114 H Total Creatine Kinase Salicylates Acetaminophen Plasma/Serum Alcohol Crossmatch 03/23/21 03/23/21 03/23/21 00:47 04:38 04:38 RBC Hgb 8.7 L 8.7 L Hct 28.2 L 28.0 L MCV 76 L MCH 23 L MCHC 31 L RDW 25.9 H [place] % (Auto) Lymph # (Auto) Seg Neutrophils % Seg Neuts % (Manual) Lymphocytes % (Manual) Nucleated RBC % Lymphocytes # (Manual) Sodium Potassium 3.3 L Chloride Carbon Dioxide BUN 7 L Creatinine 0.6 L Glucose 104 H POC Glucose Total Creatine Kinase Salicylates Acetaminophen Plasma/Serum Alcohol Crossmatch 03/23/21 06:03 RBC Hgb Hct MCV MCH MCHC RDW [place] % (Auto) Lymph # (Auto) Seg Neutrophils % Seg Neuts % (Manual) Lymphocytes % (Manual) Nucleated RBC % Lymphocytes # (Manual) Sodium Potassium Chloride Carbon Dioxide BUN Creatinine Glucose POC Glucose 117 H Total Creatine Kinase Salicylates Acetaminophen Plasma/Serum Alcohol Crossmatch Assessment and Plan #Acute Encephalopathy #Possible Seizure #ETOH abuse #Tachycardia #Right Basilar Opacity #Aspiration Pneumonia #Severe Acute Upper GI bleed #Acute Blood Loss - Presented with and Hbg of 4.4 - S/p 4units of PRBCs #Hypokalemia #Hyponatremia-improved #Aspiration Pneumonia #Hypoglycemia - Patient is on CIWA protocol, continue with Precedex. -Once he is able to tolerate orally, start on scheduled Librium taper -Once he is able to participate in discussions, substance abuse counselling -Get EKG in am and monitor QTc while on Precedex - Seizure precaution - CXR with right basilar opacity -will hold off antibiotics for now. It is probably a chemical pneumonitis. Trend fever curve and WCC -Continue with therapeutic PPI -SCD fro VTE prophylaxis -Accuchecks with glycemic control. Keep blood glucose 140-180mg/dL. Avoid hypoglycemia - Monitor and replace electrolytes as needed -EGD this morning -Supportive transfusions as clinically indicated, keep HgB >7g/dL The high probability of a clinically significant, sudden or life threatening deterioration of the [Neuro, GI, Respiratory] system(s) required my full and direct attention, intervention and personal management. The aggregate critical care time was [33] minutes. This time is in addition to time spent performing reported procedures but includes the following: [x] Data Review and interpretation [x] Patient assessment and monitoring of vital signs [x] Documentation [x] Medication orders and management
[2021-03-23] MEDS: POTASSIUM CHLORIDE 10 MEQ 10 MEQ/100 ML BAG IV SCH ×4 (08:00→11:30)
[2021-03-23] MEDS: PANTOPRAZOLE 80 MG in SODIUM CHLORIDE 0.9% 100 ML IV SCH (08:00)
[2021-03-23] MEDS ORDERED: WATER FOR IRRIG STERILE 250 ML BOTTLE IR ONE (09:41)
[2021-03-23] MEDS ORDERED: WATER FOR IRRIG STERILE 1,000 ML BOTTLE ONE (09:41)
[2021-03-23] MEDS ORDERED: EPINEPHrine 1 MG/10 ML SYRINGE ONE (09:42)
[2021-03-23] MEDS ORDERED: propofoL 200 MG/20 ML VIAL IV ONE ×2 (10:39→10:40)
[2021-03-23] MEDS ORDERED: LIDOCAINE MPF (2%) 20 MG/1 ML VIAL 5 ML ONE (10:40)
--- NOTE | 2021-03-23 10:40 | Consultation ---
History of Present Illness Consult date: 03/23/21 Reason for Consult: Possible seizure like activity , hx of alcoholism and GI bleeding History of present illness: Vomiting blood History of present illness: The patient is a 41-year-old gentleman with a history of alcohol abuse and GI bleed who reported being admitted to a hospital in [place] a few months ago, for GI bleed. He does not know what hospital he was admitted to, nor does he know the details of his diagnosis. He presents to the ER today with a complaint of vomiting blood, bloody stool, and possible seizure. He believes that he had a seizure at home on the bed. He states his last alcoholic beverage was yesterday. The patient denies headache, neck pain, chest pain, abdominal pain, muscle Doddy and suicidality. The patient thinks that either himself or his brother called 911 because of a possible seizure today. Patient is a poor historian, not accompanied by friends or family at this time for collateral information or additional information. Patient states that he drinks 4 beers daily. Work-up in the ER showed hemoglobin of 4.4, sodium 123 plasma alcohol level 0.09. Patient was given IV fluid, initiated on blood transfusion, placed on CIWA protocol, GI consulted and call for admission for further evaluation and management of severe anemia, acute GI bleed. today he is alert difficult to communicate with he speak No reported seizure he is restraint , slightly agitated Vital are stable Ct brain is unremarkable Review of System: Constitutional: no fever, no chills, no weight loss Ears, eyes, nose, mouth and throat: no nasal congestion, no nasal discharge, no sinus pressure, no vision change, no red eye. Neck: No neck pain or rigidity. Cardiovascular: No chest pain, no orthopnea, no palpitations, no leg swelling Respiratory: No shortness of breath, no cough, no congestion, no wheezing Gastrointestinal: + abdominal pain, + nausea, + vomiting Genitourinary : no dysuria, no hematuria Musculoskeletal: no joint swelling or muscle ache Integumentary: no rash, no pruritis Neurological: no parathesias, no numbness, no tingling Endocrine: no cold or heat intolerance, no polyuria or polydipsia Hematologic/Lymphatic: no easy bruising, no easy bleeding, no gland swelling Allergic/Immunologic: no urticaria, no angioedema. Past History Past Medical History: other (Alcohol abuse) Past Surgical History: denies: No surgical history Social history: alcohol abuse Family history: no significant family history Medications and Allergies Allergies Allergy/AdvReac Type Severity Reaction Status Date / Time No Known Allergies Allergy Unverified 03/20/21 07:13 Home Medications Medication Instructions Recorded Confirmed Last Taken Type No Known Home Medications [No 03/20/21 03/20/21 Unknown History Reported Home Medications] Active Meds: Active Medications Pantoprazole Sodium 80 mg/ (Sodium Chloride) 100 mls @ 10 mls/hr IV DIRECT BOYD Sodium Chloride (Nacl 0.9% 500 Ml) 500 mls @ 0 mls/hr IV ONCE NR Stop: 03/20/21 20:00 Sodium Chloride (Nacl 0.9% 1000 Ml) 1,000 mls @ 125 mls/hr IV DIRECT BOYD Lorazepam (Lorazepam 2 Mg/Ml Vial) 2 mg IV Q1HR PRN PRN Reason: CIWA-Ar 8-15 Lorazepam (Lorazepam 2 Mg/Ml Vial) 4 mg IV Q1HR PRN PRN Reason: CIWA-Ar 16-25 Exam Past History Past Medical History: other (Alcohol abuse) Past Surgical History: denies: No surgical history Social history: alcohol abuse Family history: no significant family history Medications and Allergies Allergies Allergy/AdvReac Type Severity Reaction Status Date / Time No Known Allergies Allergy Unverified 03/20/21 07:13 Home Medications Medication Instructions Recorded Confirmed Last Taken Type No Known Home Medications [No 03/20/21 03/20/21 Unknown History Reported Home Medications] Active Meds: Active Medications Clonidine HCl (Clonidine Tts 0.2 Mg/24 Hr Patch) 0.2 mg TD Noriega BOYD Dextrose (Dextrose 50% In Water (25gm) 50 Ml Syringe) 50 ml IV Q30MIN PRN; Protocol PRN Reason: Hypoglycemia Pantoprazole Sodium 80 mg/ (Sodium Chloride) 100 mls @ 10 mls/hr IV DIRECT BOYD Last Admin: 03/23/21 08:00 Dose: 8 mg/hr, 10 mls/hr Documented by: Dexmedetomidine HCl 200 mcg/ (Sodium Chloride) 50 mls @ 4.082 mls/hr IV TITRATE BOYD; Protocol Last Admin: 03/23/21 09:01 Dose: 0.2 mcg/kg/hr, 4.082 mls/hr Documented by: Folic Acid 1 mg/ Sodium (Chloride) 50.2 mls @ 200.8 mls/hr IV QDAY BOYD Last Infusion: 03/22/21 10:02 Dose: Infused Documented by: Thiamine HCl 100 mg/ Sodium (Chloride) 51 mls @ 100 mls/hr IV QDAY BOYD Last Infusion: 03/22/21 10:16 Dose: Infused Documented by: Dextrose/Sodium Chloride (D5/0.45ns) 1,000 mls @ 125 mls/hr IV DIRECT BOYD Last Admin: 03/23/21 09:01 Dose: 125 mls/hr Documented by: Potassium Chloride (Kcl 10meq/100ml) 10 meq in 100 mls @ 100 mls/hr IV Q1H BOYD Stop: 03/23/21 11:59 Last Admin: 03/23/21 09:54 Dose: 100 mls/hr Documented by: Lorazepam (Lorazepam 2 Mg/Ml Vial) 2 mg IV Q1HR PRN PRN Reason: [facility] 8-15 Last Admin: 03/23/21 04:08 Dose: 2 mg Documented by: Lorazepam (Lorazepam 2 Mg/Ml Vial) 4 mg IV Q1HR PRN PRN Reason: [place]-Ar 16-25 Last Admin: 03/22/21 07:05 Dose: 4 mg Documented by: Physical Examination - Vital Signs Vital Signs: Vital Signs Temp Pulse Resp BP Pulse Ox 98.8 F 100 H 17 118/64 99 03/20/21 06:58 03/20/21 06:58 03/20/21 06:58 03/20/21 06:58 03/20/21 06:58 - Constitutional General appearance: uncomfortable - EENT EENT: Present: PERRL, mucous membranes moist - Respiratory Respiratory: Present: lungs clear, rhonchi - Cardiovascular Cardiovascular: Present: regular rate, normal S1, normal S2 Extremities: Present: no peripheral edema bilatateraly, no clubbing, cyanosis - Gastrointestinal Gastrointestinal: Present: normoactive bowel sounds - Integumentary Integumentary: Present: normal - Neurologic Cranial nerve examination: PERRL, EOMI, intact Speech examination: intact Sensorimotor examination: intact Detailed motor examination: grossly full strength in Results - Laboratory Findings CBC and BMP: 03/23/21 04:38 03/23/21 04:38 Abnormal Lab Findings: Abnormal Labs 03/20/21 03/20/21 03/20/21 07:25 07:30 07:30 RBC 2.39 L Hgb 4.4 L* Hct 15.1 L* MCV 63 L MCH 18 L MCHC 29 L RDW 22.4 H [place] % (Auto) 9.2 H Lymph # (Auto) 0.8 L Seg Neutrophils % 75.3 H Seg Neuts % (Manual) Lymphocytes % (Manual) Nucleated RBC % Lymphocytes # (Manual) Sodium 132 L Potassium Chloride 97.6 L Carbon Dioxide 21 L BUN 23 H Creatinine 0.7 L Glucose 128 H POC Glucose Total Creatine Kinase Salicylates Acetaminophen Plasma/Serum Alcohol Crossmatch See Detail 03/20/21 03/20/21 03/20/21 07:30 07:30 07:30 RBC Hgb Hct MCV MCH MCHC RDW [place] % (Auto) Lymph # (Auto) Seg Neutrophils % Seg Neuts % (Manual) Lymphocytes % (Manual) Nucleated RBC % Lymphocytes # (Manual) Sodium Potassium Chloride Carbon Dioxide BUN Creatinine Glucose POC Glucose Total Creatine Kinase 400 H Salicylates < 0.3 L Acetaminophen 5.0 L Plasma/Serum Alcohol Crossmatch 03/20/21 03/20/21 03/20/21 07:30 15:46 23:50 RBC Hgb 5.2 L* 6.3 L Hct 17.8 L* 20.5 L MCV MCH MCHC RDW [place] % (Auto) Lymph # (Auto) Seg Neutrophils % Seg Neuts % (Manual) Lymphocytes % (Manual) Nucleated RBC % Lymphocytes # (Manual) Sodium Potassium Chloride Carbon Dioxide BUN Creatinine Glucose POC Glucose Total Creatine Kinase Salicylates Acetaminophen Plasma/Serum Alcohol 0.09 H Crossmatch 03/21/21 03/21/21 03/21/21 10:31 10:31 10:31 RBC Hgb 9.1 L 9.1 L Hct 29.0 L D 29.5 L MCV 75 L MCH 23 L MCHC 31 L RDW 26.8 H [place] % (Auto) Lymph # (Auto) Seg Neutrophils % Seg Neuts % (Manual) Lymphocytes % (Manual) Nucleated RBC % Lymphocytes # (Manual) Sodium 136 L Potassium 3.2 L Chloride Carbon Dioxide 20 L BUN Creatinine 0.6 L Glucose POC Glucose Total Creatine Kinase Salicylates Acetaminophen Plasma/Serum Alcohol Crossmatch 03/21/21 03/22/2103/22/21 18:32 07:40 07:46 RBC 3.57 L Hgb 8.8 L 8.4 L Hct 29.1 L 27.0 L MCV 76 L MCH 24 L MCHC 31 L RDW 26.1 H [place] % (Auto) Lymph # (Auto) Seg Neutrophils % Seg Neuts % (Manual) 90.0 H Lymphocytes % (Manual) 3.0 L Nucleated RBC % 1.0 H Lymphocytes # (Manual) 0.2 L Sodium Potassium 3.1 L Chloride Carbon Dioxide 19 L BUN Creatinine 0.6 L Glucose 74 L POC Glucose Total Creatine Kinase Salicylates Acetaminophen Plasma/Serum Alcohol Crossmatch 03/22/21 03/22/21 03/22/21 15:53 17:03 22:14 RBC Hgb 8.1 L 8.5 L Hct 26.7 L 27.9 L MCV MCH MCHC RDW [place] % (Auto) Lymph # (Auto) Seg Neutrophils % Seg Neuts % (Manual) Lymphocytes % (Manual) Nucleated RBC % Lymphocytes # (Manual) Sodium Potassium Chloride Carbon Dioxide BUN Creatinine Glucose POC Glucose 114 H Total Creatine Kinase Salicylates Acetaminophen Plasma/Serum Alcohol Crossmatch 03/23/21 03/23/21 03/23/21 00:47 04:38 04:38 RBC Hgb 8.7 L 8.7 L Hct 28.2 L 28.0 L MCV 76 L MCH 23 L MCHC 31 L RDW 25.9 H [place] % (Auto) Lymph # (Auto) Seg Neutrophils % Seg Neuts % (Manual) Lymphocytes % (Manual) Nucleated RBC % Lymphocytes # (Manual) Sodium Potassium 3.3 L Chloride Carbon Dioxide BUN 7 L Creatinine 0.6 L Glucose 104 H POC Glucose Total Creatine Kinase Salicylates Acetaminophen Plasma/Serum Alcohol Crossmatch 03/23/21 06:03 RBC Hgb Hct MCV MCH MCHC RDW [place] % (Auto) Lymph # (Auto) Seg Neutrophils % Seg Neuts % (Manual) Lymphocytes % (Manual) Nucleated RBC % Lymphocytes # (Manual) Sodium Potassium Chloride Carbon Dioxide BUN Creatinine Glucose POC Glucose 117 H Total Creatine Kinase Salicylates Acetaminophen Plasma/Serum Alcohol Crossmatch Assessment and Plan Assessment and Plan #Seizure likely due to alcohol withdrawal Admit to stepdown unit, CT head unremarkable Patient placed on Ativan as needed as needed for seizure #Acute upper GI bleed #Severe blood loss anemia -Patient received 1 unit of packed RBC transfusion in the ER -Will transfuse 2 more additional unit of packed RBC -Continue PPI IV, consulted GI for possible EGD -continue IV fluid, monitor H&H #Alcohol abuse with withdrawal Supportive care for alcohol withdrawal, Place on CIUT protocol #Right basilar opacity likely aspiration pneumonia No elevated white count, no fever, monitor off antibiotics #DVT prophylaxis, SCD Plan: -As above - Ativan prn for seizure - seizure precaution - Hydration -Thiamine and Multi vitamins -GI evaluate will sign off call as needed
[2021-03-23] MEDS ORDERED: SODIUM CHLORIDE 0.9% 1000 ML 1,000 ML ONE (10:46)
--- NOTE | 2021-03-23 11:23 | Anesthesia Day of Surgery ---
Anesthesia Day of Surgery - Day of Surgery Patient Examined: Yes (late entry - patient seen pre-procedure) Patient H&P Reviewed: Yes Patient is NPO: Yes
--- NOTE | 2021-03-23 11:23 | Anesthesia Consultation ---
Anesthesia Consult and Med Hx Date of service: 03/23/21 (late entry - patient seen preoperatively) - Airway Anesthetic Teeth Evaluation: Poor ROM Head & Neck: Adequate Mental/Hyoid Distance: Adequate Mallampati Class: Class II Intubation Access Assessment: Probably Good - Pulmonary Exam CTA: Yes - Cardiac Exam Cardiac Exam: RRR - Pre-Operative Health Status ASA Pre-Surgery Classification: ASA3 Proposed Anesthetic Plan: MAC - Pulmonary Hx Smoking: No Hx Asthma: No Hx Sleep Apnea: No - Cardiovascular System Hx Hypertension: No Hx Coronary Artery Disease: No - Central Nervous System Hx Seizures: Yes (possible seizure 03/22/21) - Gastrointestinal Hx Ulcer: No Hx Gastroesophageal Reflux Disease: No - Endocrine Hx Renal Disease: No Hx Liver Disease: No Hx Thyroid Disease: No - Hematic Hx Anemia: Yes - Other Systems Hx Alcohol Use: Yes Hx Substance Use: Yes Hx Cancer: No Hx Obesity: No - Additional Comments Anesthesia Medical History Comments: No hx of anesthetic complications
--- NOTE | 2021-03-23 11:24 | Operative Report ---
Operative Report Operative Report: Date: 03/23/2021 Endoscopist: Venancio Ortega MD (Jenny) EGD REPORT PREOPERATIVE DIAGNOSIS: GI bleed, hematemesis POSTOPERATIVE DIAGNOSIS:esophagitis, gastritis ESTIMATED BLOOD LOSS:minimal DESCRIPTION OF PROCEDURE: A high-resolution EGD scope was passed through the oropharynx, esophagus, stomach, and second portion of duodenum. The scope was carefully withdrawn. Retroflexion was performed in the stomach. At the end of the procedure, the scope was cleaned using normal technique. Vital signs monitored continuously throughout. SEDATION: Provided by Anesthesiology Services. COMPLICATIONS: None. FINDINGS: 1. Mild erythematous mucosa in the antrum and gastric body. Biopsies obtained. 2. LA grade B esophagitis without active bleeding in the distal esophagus. No obvious signs of Peralta's esophagus or varices found. 3. No blood in the stomach seen. 4. Normal duodenum exam. RECOMMENDATIONS: 1. Monitor H/H and transfuse as needed. 2. Clear liquid diet once patient more alert and able to swallow safely. 3. Continue with PPI. Can switch to PO bid dosing. 4. If no signs of recurrent bleeding and H/H stable, ok for discharge per GI standpoint tomorrow.
--- NOTE | 2021-03-23 11:26 | Post Anesthesia Evaluation ---
- Post Anesthesia Evaluation Patient Participated: Yes Airway Patent: Yes Stable Respiratory Function: Yes Nausea/Vomiting: No Temp > 96.8F: Yes Pain Manageable: Yes Adequeate Hydration: Yes Anesthesia Complications: No Block Receding Appropriately: Not Applicable Patient on Ventilator: No
[2021-03-23] MEDS: THIAMINE 100 MG in SODIUM CHLORIDE 0.9% 50 ML IV SCH (11:29)
[2021-03-23] MEDS: FOLIC ACID 1 MG in SODIUM CHLORIDE 0.9% 50 ML IV SCH (11:31)
[2021-03-23] MEDS: MULTIVITAMINS ,THERAPEUTIC TAB PO SCH (13:39)
[2021-03-23] MEDS: chlordiazePOXIDE 25 MG CAP PO SCH ×2 (13:39→21:54)
[2021-03-23] MEDS: PANTOPRAZOLE 40 MG TAB PO SCH (16:44)
--- NOTE | 2021-03-23 18:15 | Progress Note ---
Assessment and Plan Assessment and plan: This is a 41-year-old male with a history of alcohol abuse and GI bleed admitted for GI bleed and possible seizure. Neuro: Acute encephalopathy, possible seizure, EtOH abuse -[facility] protocol -Precedex drip -Wean as tolerated -Librium taper -Neurology consulted, appreciate recommendations -EEG -CT head without acute intracranial abnormality -Aspiration and seizure precautions -Folic acid, thiamine, multivitamin -EEG pending CV: SR to SB -On a Cardene patch -Blood pressure monitor per protocol Respiratory: NAD -SPO2 monitoring -Supplemental oxygen as needed -Pulmonary GI: Severe acute upper GI bleed -Presented with a hemoglobin of 4.4 -S/p 4 units PRBC -GI consulted, appreciate recommendations -03/28 EGD which showed mild erythematous mucosa in the antrum and gastric body, LA grade B esophagitis, no obvious signs of Peralta's esophagus or varices found, no blood in stomach, normal duodenum-Every 6 H&H -S/p Protonix drip now on Protonix twice daily -Clear liquid diet -24 hours 980 ml : Hypokalemia -Replete potassium -Trend BMP -Intervene for electrolytes when needed Endo: NAD -S/p hypoglycemia -Accu-Cheks every 6 -Avoid hypoglycemia ID: Aspiration pneumonia -CXR with right basilar opacity which may represent a infectious process -Afebrile with out leukocytosis -UA unremarkable -Follow culture data -We will hold off ABX therapy at this time Heme: Acute blood loss anemia -Trend CBC -Transfuse hemoglobin less than 7 -SCDs to bilateral ultrasound in bed -Avoid chemical prophylaxis in setting of acute GI bleed The high probability of a clinically significant, sudden or life threatening deterioration of the [GI] system(s) required my full and direct attention, intervention and personal management. The aggregate critical care time was [60] minutes. This time is in addition to time spent performing reported procedures but includes the following: [x] Data Review and interpretation [x] Patient assessment and monitoring of vital signs [x] Documentation [x] Medication orders and management Disposition Plan: icu Total Time Spent with Patient (Minutes): 60 History Interval history: This is a 41-year-old male with EtOH abuse and GI bleed who presented to emergency department on 03/20 with complaints of vomiting blood, bloody stool and possible seizure. Patient states that he believes he had a seizure at home on the bed and his last alcohol intake was on 03/19. Patient states that he drinks 4 beers daily. Recommend emergency department reveals a hemoglobin of 4.4, hyponatremia with sodium of 123 and alcohol intoxication with a plasma alcohol level of 0.09. Patient was given IV fluids, initiated on blood transfusion, placed on CIWA protocol and GI was consulted. Patient was admitted to the hospital service to [facility] for further evaluation management of severe ane vero and acute GI bleed. 03/22/21- Patient remains on CIWA protocol, received over 20mg of IV Ativan overnight. On precedex gtt this am. Patient remains restless and confused, on RA SPO2 at 100%. Patient is s/p 4units of PRBCs, plan for possible EGD in the Am. Will continue serial H&H and protonix gtt. Low K repleted, will repeat in the am. Hypoglycemic this am, IVF switched to D51/2NS. 03/23: Precedex gtt wean as tolerated, EGD today, DC protonix gtt to BID dosages, started on librium taper Hospitalist Physical - Constitutional Vitals: Temp Pulse Resp BP Pulse Ox 99.4 F 82 13 152/94 100 03/23/21 12:00 03/23/21 17:00 03/23/21 17:00 03/23/21 17:00 03/23/21 17:00 General appearance: Present: mild distress - EENT Eyes: Present: PERRL, EOM intact ENT: hearing intact, clear oral mucosa, dentition normal - Neck Neck: Present: normal ROM - Respiratory Respiratory effort: normal Respiratory: bilateral: diminished - Cardiovascular Rhythm: regular Heart Sounds: Present: S1 & S2. Absent: systolic murmur, diastolic murmur - Extremities Extremities: no ischemia, pulses intact, pulses symmetrical, No edema, normal temperature, normal color Peripheral Pulses: within normal limits - Abdominal General gastrointestinal: soft, non-tender, non-distended, normal bowel sounds - Integumentary Integumentary: Present: warm, dry - Psychiatric Psychiatric: cooperative - Neurologic Neurologic: CNII-XII intact, no focal deficits, moves all extremities - Allied Health Allied health notes reviewed: nursing, OT, RT Results - Labs CBC & Chem 7: 03/23/21 04:38 03/23/21 04:38 Labs: Laboratory Last Values WBC 5.2 K/mm3 (4.5-11.0) 03/23/21 04:38 RBC 3.69 M/mm3 (3.65-5.03) 03/23/21 04:38 Hgb 8.7 gm/dl (11.8-15.2) L 03/23/21 04:38 Hct 28.0 % (35.5-45.6) L 03/23/21 04:38 MCV 76 fl (84-94) L 03/23/21 04:38 MCH 23 pg (28-32) L 03/23/21 04:38 MCHC 31 % (32-34) L 03/23/21 04:38 RDW 25.9 % (13.2-15.2) H 03/23/21 04:38 Plt Count 353 K/mm3 (140-440) 03/23/21 04:38 Lymph % (Auto) 13.4 % (13.4-35.0) 03/20/21 07:30 [place] % (Auto) 9.2 % (0.0-7.3) H 03/20/21 07:30 Eos % (Auto) 0.3 % (0.0-4.3) 03/20/21 07:30 Baso % (Auto) 1.8 % (0.0-1.8) 03/20/21 07:30 Lymph # (Auto) 0.8 K/mm3 (1.2-5.4) L 03/20/21 07:30 [place] # (Auto) 0.5 K/mm3 (0.0-0.8) 03/20/21 07:30 Eos # (Auto) 0.0 K/mm3 (0.0-0.4) 03/20/21 07:30 Baso # (Auto) 0.1 K/mm3 (0.0-0.1) 03/20/21 07:30 Add Manual Diff Complete 03/22/21 07:46 Total Counted 100 03/22/21 07:46 Seg Neutrophils % 75.3 % (40.0-70.0) H 03/20/21 07:30 Seg Neuts % (Manual) 90.0 % (40.0-70.0) H 03/22/21 07:46 Band Neutrophils % 1.0 % 03/22/21 07:46 Lymphocytes % (Manual) 3.0 % (13.4-35.0) L 03/22/21 07:46 Monocytes % (Manual) 5.0 % (0.0-7.3) 03/22/21 07:46 Basophils % (Manual) 1.0 % (0.0-1.8) 03/22/21 07:46 Nucleated RBC % 1.0 % (0.0-0.9) H 03/22/21 07:46 Seg Neutrophils # 4.4 K/mm3 (1.8-7.7) 03/20/21 07:30 Seg Neutrophils # Man 7.5 K/mm3 (1.8-7.7) 03/22/21 07:46 Band Neutrophils # 0.1 K/mm3 03/22/21 07:46 Lymphocytes # (Manual) 0.2 K/mm3 (1.2-5.4) L 03/22/21 07:46 Abs React Lymphs (Man) 0.0 K/mm3 03/22/21 07:46 Monocytes # (Manual) 0.4 K/mm3 (0.0-0.8) 03/22/21 07:46 Eosinophils # (Manual) 0.0 K/mm3 (0.0-0.4) 03/22/21 07:46 Basophils # (Manual) 0.1 K/mm3 (0.0-0.1) 03/22/21 07:46 Metamyelocytes # 0.0 K/mm3 03/22/21 07:46 Myelocytes # 0.0 K/mm3 03/22/21 07:46 Promyelocytes # 0.0 K/mm3 03/22/21 07:46 Blast Cells # 0.0 K/mm3 03/22/21 07:46 WBC Morphology Not Reportable 03/22/21 07:46 Hypersegmented Neuts Not Reportable 03/22/21 07:46 Hyposegmented Neuts Not Reportable 03/22/21 07:46 Hypogranular Neuts Not Reportable 03/22/21 07:46 Smudge Cells Not Reportable 03/22/21 07:46 Toxic Granulation Not Reportable 03/22/21 07:46 Toxic Vacuolation Not Reportable 03/22/21 07:46 Dohle Bodies Not Reportable 03/22/21 07:46 Pelger-Huet Anomaly Not Reportable 03/22/21 07:46 Eduard Rods Not Reportable 03/22/21 07:46 Platelet Estimate Consistent w auto 03/22/21 07:46 Clumped Platelets Not Reportable 03/22/21 07:46 Plt Clumps, EDTA Not Reportable 03/22/21 07:46 Large Platelets Not Reportable 03/22/21 07:46 Giant Platelets Not Reportable 03/22/21 07:46 Platelet Satelliting Not Reportable 03/22/21 07:46 Plt Morphology Comment Not Reportable 03/22/21 07:46 RBC Morphology Not Reportable 03/22/21 07:46 Dimorphic RBCs Not Reportable 03/22/21 07:46 Polychromasia Few 03/22/21 07:46 Hypochromasia 1+ 03/22/21 07:46 Poikilocytosis Not Reportable 03/22/21 07:46 Anisocytosis 3+ 03/22/21 07:46 Microcytosis Not Reportable 03/22/21 07:46 Macrocytosis Not Reportable 03/22/21 07:46 Spherocytes Not Reportable 03/22/21 07:46 Pappenheimer Bodies Not Reportable 03/22/21 07:46 Sickle Cells Not Reportable 03/22/21 07:46 Target Cells Not Reportable 03/22/21 07:46 Tear Drop Cells Not Reportable 03/22/21 07:46 Ovalocytes Not Reportable 03/22/21 07:46 Helmet Cells Not Reportable 03/22/21 07:46 [place] Bodies Not Reportable 03/22/21 07:46 [place] Rings Not Reportable 03/22/21 07:46 Lena Cells Not Reportable 03/22/21 07:46 Bite Cells Not Reportable 03/22/21 07:46 Crenated Cell Not Reportable 03/22/21 07:46 Elliptocytes Not Reportable 03/22/21 07:46 Acanthocytes (Spur) Not Reportable 03/22/21 07:46 Rouleaux Not Reportable 03/22/21 07:46 Hemoglobin C Crystals Not Reportable 03/22/21 07:46 Schistocytes Not Reportable 03/22/21 07:46 Malaria parasites Not Reportable 03/22/21 07:46 Herminio Bodies Not Reportable 03/22/21 07:46 Hem Pathologist Commnt No 03/22/21 07:46 PT 14.3 Sec. (12.2-14.9) 03/20/21 07:30 INR 1.00 (0.87-1.13) 03/20/21 07:30 APTT 28.2 Sec. (24.2-36.6) 03/20/21 07:30 Sodium 139 mmol/L (137-145) 03/23/21 04:38 Potassium 3.3 mmol/L (3.6-5.0) L 03/23/21 04:38 Chloride 105.5 mmol/L (98-107) 03/23/21 04:38 Carbon Dioxide 22 mmol/L (22-30) 03/23/21 04:38 Anion Gap 15 mmol/L 03/23/21 04:38 BUN 7 mg/dL (9-20) L 03/23/21 04:38 Creatinine 0.6 mg/dL (0.8-1.3) L 03/23/21 04:38 Estimated GFR > 60 ml/min 03/23/21 04:38 BUN/Creatinine Ratio 12 % 03/23/21 04:38 Glucose 104 mg/dL (75-100) H 03/23/21 04:38 POC Glucose 95 mg/dL (70-105) 03/23/21 11:18 Calcium 8.5 mg/dL (8.4-10.2) 03/23/21 04:38 Phosphorus 3.70 mg/dL (2.5-4.5) 03/23/21 04:38 Magnesium 2.10 mg/dL (1.7-2.3) 03/23/21 04:38 Total Bilirubin 0.40 mg/dL (0.1-1.2) 03/20/21 07:30 AST 36 units/L (5-40) 03/20/21 07:30 ALT 23 units/L (7-56) 03/20/21 07:30 Alkaline Phosphatase 41 units/L (35-129) 03/20/21 07:30 Total Creatine Kinase 400 units/L (55-170) H 03/20/21 07:30 Total Protein 6.9 g/dL (6.3-8.2) 03/20/21 07:30 Albumin 3.9 g/dL (3.9-5) 03/20/21 07:30 Albumin/Globulin Ratio 1.3 % 03/20/21 07: TSH 2.410 mlU/mL (0.270-4.200) 03/20/21 07:30 Urine Color Yellow (Yellow) 03/20/21 09: Urine Turbidity Clear (Clear) 03/20/21: Urine pH 6.0 (5.0-7.0) 03/20/21: Ur Specific [place] 1.015 (1.003-1.030) 03/20/21 09: Urine Protein <15 mg/dl mg/dL (Negative) 03/20/21: Urine Glucose (UA) Neg mg/dL (Negative) 03/20/21: Urine Ketones Neg mg/dL (Negative) 03/20/21: Urine Blood Neg (Negative) 03/20/21: Urine Nitrite Neg (Negative) 03/20/21: Urine Bilirubin Neg (Negative) 03/20/21: Urine Urobilinogen < 2.0 mg/dL (<2.0) 03/20/21: Ur Leukocyte Esterase Neg (Negative) 03/20/21: Urine WBC (Auto) < 1.0 /HPF (0.0-6.0) 03/20/21: Urine RBC (Auto) < 1.0 /HPF (0.0-6.0) 03/20/21: Salicylates < 0.3 mg/dL (2.8-20.0) L 03/20/21 07:30 Urine Opiates Screen Negative 03/20/21: Urine Methadone Screen Negative 03/20/21: Acetaminophen 5.0 ug/mL (10.0-30.0) L 03/20/21 07:30 Ur Barbiturates Screen Negative 03/20/21: Ur Phencyclidine Scrn Negative 03/20/21: Ur Amphetamines Screen Negative 03/20/21: U Benzodiazepines Scrn Negative 03/20/21 09: Urine Cocaine Screen Negative 03/20/21: U Marijuana (THC) Screen Negative 03/20/21: Drugs of Abuse Note Disclamer 12/10/21 09:27 Plasma/Serum Alcohol 0.09 % (0-0.07) H 03/20/21 07:30 Blood Type O NEGATIVE 03/20/21 07:25 Antibody Screen Negative 03/20/21 07:25 Crossmatch See Detail 03/20/21 07:25 [place]/IV: Voiding Method Condom Catheter Active Medications - Current Medications Current Medications: Generic Name Dose Route Start Last Admin Trade Name Freq PRN Reason Stop Dose Admin Chlordiazepoxide HCl 25 mg 03/23/21 14:00 03/23/21 13:39 Chlordiazepoxide 25 Mg Cap PO 03/23/21 23:59 25 mg Q8HR BOYD Administration Chlordiazepoxide HCl 25 mg 03/24/21 10:00 Chlordiazepoxide 25 Mg Cap PO 03/24/21 22:01 Q12HR BOYD Chlordiazepoxide HCl 25 mg 03/25/21 10:00 Chlordiazepoxide 25 Mg Cap PO 03/25/21 10:01 DAILY BOYD Chlordiazepoxide HCl 20 mg 03/26/21 10:00 Chlordiazepoxide 5 Mg Cap PO 03/26/21 10:01 DAILY BOYD Chlordiazepoxide HCl 10 mg 03/27/21 10:00 Chlordiazepoxide 5 Mg Cap PO 03/27/21 10:01 DAILY BOYD Clonidine HCl 0.2 mg 03/29/21 10:00 Clonidine Tts 0.2 Mg/24 Hr Patch TD Noriega BOYD Dextrose 50 ml 03/22/21 11:13 Dextrose 50% In Water (25gm) 50 Ml Syringe IV Q30MIN PRN Hypoglycemia Protocol Folic Acid 1 mg 03/24/21 10:00 Folic Acid 1 Mg Tab PO DAILY BOYD Dexmedetomidine HCl 200 mcg/ 50 mls @ 4.082 mls/hr 03/22/21 09:00 03/23/21 14:00 Sodium Chloride IV 0 mcg/kg/hr TITRATE BOYD 0 mls/hr Titration Protocol 0.2 MCG/KG/HR Lorazepam 2 mg 03/20/21 07:30 03/23/21 11:29 Lorazepam 2 Mg/Ml Vial IV 2 mg Q1HR PRN Administration CIWA-Ar 8-15 Lorazepam 4 mg 03/20/21 07:30 03/22/21 07:05 Lorazepam 2 Mg/Ml Vial IV 4 mg Q1HR PRN Administration CIWA-Ar 16-25 Multivitamins 1 each 03/23/21 13:00 03/23/21 13:39 Multivitamins ,Therapeutic Tab PO 1 each QDAY BOYD Administration Pantoprazole Sodium 40 mg 03/23/21 16:30 03/23/21 16:44 Pantoprazole 40 Mg Tab PO 40 mg BIDAC BOYD Administration Thiamine HCl 100 mg 03/24/21 10:00 Thiamine 100 Mg Tab PO QDAY BOYD Nutrition/Malnutrition Assess - Dietary Evaluation Nutrition/Malnutrition Findings: Nutrition Notes Start: 03/21/21 12:54 Freq: Status: Active Protocol: Document 03/23/21 10:49 EVA (Rec: 03/23/21 10:52 [facility] [id number]) Nutrition Notes Initial or Follow up Reassessment Other Pertinent Diagnosis Acute upper GIB, anemia, seizure, EtOH dependence and withdrawal Current Diet NPO Labs/Tests K 3.3 Pertinent Medications Precedex gtt, D5 1/2NS at 125ml/hr, Folic acid gtt, Thiamine gtt, 10mEq KCl at 100ml/hr (x 4 bags) Height 5 ft 6 in Weight 81.647 kg [place] Body Weight (kg) 64.54 BMI 29.0 Weight Status Overweight Subjective/Other Information Day 3 NPO. Pt in 4-point restraints; actively going through EtOH withdrawal; on CIWA protocol. EGD scheduled for today. Burn Absent Trauma Absent Minimum of two criteria No #1 Nutrition Diagnosis Altered GI function As Evidenced by Signs and Symptoms pt remains NPO Diagnosis Progress(for reassessment Continues documentation) Is patient on ventilator? No Is Patient Ambulatory and/or Out of Bed No REE-([facility]-confined to bed) 2004.920 Calculation Used for Recommendations [facility] Additional Notes Pro needs 1.2-2g/k-163g/ day Fluid needs 1ml/kcal Nutrition Intervention Change Diet Order: Diet advancement when medically feasible Goal #1 Either advance diet or start NTR support to meet nutrient needs Follow-Up By: 03/25/21 Additional Comments F/U: diet advancement vs initiation of NTR support
[2021-03-24 05:21] LABS: Hematocrit 30.7 % (35.5-45.6); Hemoglobin 9.5 gm/dl (11.8-15.2); Mean Corpuscular HGB Conc 31 % (32-34); Mean Corpuscular Volume 77 fl (84-94); Platelet Count 444 K/mm3 (140-440); Red Blood Count 4.02 M/mm3 (3.65-5.03)
[2021-03-24 05:24] LABS: Red Cell Distribution Width 26.3 % (13.2-15.2)
[2021-03-24 05:38] LABS: Blood Urea Nitrogen 7 mg/dL (9-20); Calcium 8.9 mg/dL (8.4-10.2); Hemolysis Index 0
[2021-03-24 05:44] LABS: BUN/Creatinine Ratio 10
[2021-03-24 07:03] LABS: Total Cells Counted 100
[2021-03-24 07:04] LABS: Anisocytosis 3+; Hypochromasia 1+; Large Platelets 1+; Poikilocytosis 1+; Toxic Granulation Few
[2021-03-24 07:05] LABS: Spherocytes Few
[2021-03-24 07:15] LABS: Platelet Estimate Consistent w Auto
[2021-03-24] MEDS: PANTOPRAZOLE 40 MG TAB PO SCH ×2 (07:32→17:15)
--- NOTE | 2021-03-24 08:50 | Progress Note ---
Assessment and Plan #Acute Encephalopathy #Possible Seizure #ETOH abuse #Tachycardia #Right Basilar Opacity #Aspiration Pneumonia #Severe Acute Upper GI bleed #Acute Blood Loss - Presented with and Hbg of 4.4 - S/p 4units of PRBCs #Hypokalemia #Hyponatremia-improved #Aspiration Pneumonia #Hypoglycemia - Patient is on CIWA protocol, off Precedex. -Continue with scheduled Librium taper - Seizure precaution, fall precautions - CXR with right basilar opacity -continue to hold off antibiotics for now. Continue to trend fever curve and WCC -Stop PPI infusion, change to BID dosing -SCD for VTE prophylaxis -Accuchecks with glycemic control. Keep blood glucose 140-180mg/dL. Avoid hypoglycemia - Monitor and replace electrolytes as needed -PT/OT, increase activity -Supportive transfusions as clinically indicated, keep HgB >7g/dL -Can transfer out of the ICU Subjective Date of service: 03/24/21 Interval history: This is a 41-year-old male with a history of alcohol abuse and GI bleed admitted for GI bleed and possible seizure. Follow up fro severe alcohol withdrawal requiring Precedex, now off Precedex. QTc 447 s/p EGD which showed mild erythematous mucosa in the antrum and gastric body, LA grade B esophagitis, no obvious signs of Peralta's esophagus or varices found, no blood in stomach, normal duodenum Seen and examined. Vitals, labs, medications, chart reviewed. No adverse overnight events. Discussed with nursing staff. No fevers, no chills, no nausea or vomiting. Tolerating a full liquid diet. Objective - Exam Narrative Exam: GENERAL: well-developed and well-nourished male lying on bed , improved mental status HEENT: Normocephalic. Atraumatic. No conjunctival congestion or icterus. Patient has moist mucous membranes. NECK: Supple. Trachea midline. CHEST/LUNGS: Clear to auscultated bilaterally, breathing non labored. No wheezes crackles or rhonchi. HEART/CARDIOVASCULAR: Regular in rate and rhythm. S1 and S2 positive. ABDOMEN: Abdomen is soft, Patient has normal bowel sounds. SKIN: There is no rash. Warm and dry. NEURO: No focal motor deficit.Obeys simple commands Positive asterixis with tremors MUSCULOSKELETAL: No joint effusion or tenderness. EXTRIMITY: No edema, no cyanosis or clubbing. PSYCH: Appropriate affect and mood Vital Signs - 12hr 03/23/21 03/23/21 03/23/21 21:00 21:31 21:47 Temperature Pulse Rate 79 75 74 Pulse Rate [ From Monitor] Respiratory 20 13 17 Rate Blood Pressure 136/70 136/70 136/70 O2 Sat by Pulse 100 99 99 Oximetry 03/23/21 03/23/21 03/23/21 21:52 22:00 22:31 Temperature Pulse Rate 79 71 72 Pulse Rate [ From Monitor] Respiratory 17 20 Rate Blood Pressure 158/87 158/87 O2 Sat by Pulse 98 99 Oximetry 03/23/21 03/23/21 03/24/21 23:01 23:31 00:00 Temperature 98.2 F Pulse Rate 72 60 Pulse Rate [ From Monitor] Respiratory 17 11 L Rate Blood Pressure 109/40 109/40 O2 Sat by Pulse 98 98 100 Oximetry 03/24/21 03/24/21 03/24/21 00:01 00:31 01:01 Temperature Pulse Rate 88 75 74 Pulse Rate [ From Monitor] Respiratory 12 19 15 Rate Blood Pressure 126/53 126/53 150/81 O2 Sat by Pulse 96 99 97 Oximetry 03/24/21 03/24/21 03/24/21 01:31 02:00 02:31 Temperature Pulse Rate 71 70 72 Pulse Rate [ From Monitor] Respiratory 16 18 16 Rate Blood Pressure 150/81 141/83 141/83 O2 Sat by Pulse 100 96 98 Oximetry 03/24/21 03/24/21 03/24/21 03:01 03:31 04:00 Temperature 97.8 F Pulse Rate 76 76 Pulse Rate [ From Monitor] Respiratory 15 14 Rate Blood Pressure 140/86 140/86 O2 Sat by Pulse 97 99 100 Oximetry 03/24/21 03/24/21 03/24/21 04:01 04:31 05:00 Temperature Pulse Rate 89 86 Pulse Rate [ From Monitor] Respiratory 21 13 Rate Blood Pressure 140/86 136/96 134/86 O2 Sat by Pulse 98 90 98 Oximetry 03/24/21 03/24/21 03/24/21 05:31 06:00 06:31 Temperature Pulse Rate 78 75 133 H Pulse Rate [ From Monitor] Respiratory 22 22 21 Rate Blood Pressure 134/86 135/81 135/81 O2 Sat by Pulse 99 98 92 Oximetry 03/24/21 03/24/21 03/24/21 07:00 07:30 08:00 Temperature Pulse Rate 70 73 66 Pulse Rate [ 66 From Monitor] Respiratory 16 18 19 Rate Blood Pressure 142/86 142/86 134/91 O2 Sat by Pulse 99 98 98 Oximetry 03/24/21 08:30 Temperature Pulse Rate 119 H Pulse Rate [ From Monitor] Respiratory 13 Rate Blood Pressure 134/91 O2 Sat by Pulse 100 Oximetry Gastrointestinal: normoactive bowel sounds Integumentary: normal CBC and BMP: 03/25/21 06:46 03/24/21 04:44 ABG, PT/INR, D-dimer: PT/INR, D-dimer PT 14.3 Sec. (12.2-14.9) 03/20/21 07:30 INR 1.00 (0.87-1.13) 03/20/21 07:30 Abnormal lab findings: Abnormal Labs 03/20/21 03/20/21 03/20/21 07:25 07:30 07:30 RBC 2.39 L Hgb 4.4 L* Hct 15.1 L* MCV 63 L MCH 18 L MCHC 29 L RDW 22.4 H Plt Count [place] % (Auto) 9.2 H Lymph # (Auto) 0.8 L Seg Neutrophils % 75.3 H Seg Neuts % (Manual) Lymphocytes % (Manual) Monocytes % (Manual) Nucleated RBC % Lymphocytes # (Manual) Sodium 132 L Potassium Chloride 97.6 L Carbon Dioxide 21 L BUN 23 H Creatinine 0.7 L Glucose 128 H POC Glucose Total Creatine Kinase Salicylates Acetaminophen Plasma/Serum Alcohol Crossmatch See Detail 03/20/21 03/20/21 03/20/21 07:30 07:30 07:30 RBC Hgb Hct MCV MCH MCHC RDW Plt Count [place] % (Auto) Lymph # (Auto) Seg Neutrophils % Seg Neuts % (Manual) Lymphocytes % (Manual) Monocytes % (Manual) Nucleated RBC % Lymphocytes # (Manual) Sodium Potassium Chloride Carbon Dioxide BUN Creatinine Glucose POC Glucose Total Creatine Kinase 400 H Salicylates < 0.3 L Acetaminophen 5.0 L Plasma/Serum Alcohol Crossmatch 03/20/21 03/20/21 03/20/21 07:30 15:46 23:50 RBC Hgb 5.2 L* 6.3 L Hct 17.8 L* 20.5 L MCV MCH MCHC RDW Plt Count [place] % (Auto) Lymph # (Auto) Seg Neutrophils % Seg Neuts % (Manual) Lymphocytes % (Manual) Monocytes % (Manual) Nucleated RBC % Lymphocytes # (Manual) Sodium Potassium Chloride Carbon Dioxide BUN Creatinine Glucose POC Glucose Total Creatine Kinase Salicylates Acetaminophen Plasma/Serum Alcohol 0.09 H Crossmatch 03/21/21 03/21/21 03/21/21 10:31 10:31 10:31 RBC Hgb 9.1 L 9.1 L Hct 29.0 L D 29.5 L MCV 75 L MCH 23 L MCHC 31 L RDW 26.8 H Plt Count [place] % (Auto) Lymph # (Auto) Seg Neutrophils % Seg Neuts % (Manual) Lymphocytes % (Manual) Monocytes % (Manual) Nucleated RBC % Lymphocytes # (Manual) Sodium 136 L Potassium 3.2 L Chloride Carbon Dioxide 20 L BUN Creatinine 0.6 L Glucose POC Glucose Total Creatine Kinase Salicylates Acetaminophen Plasma/Serum Alcohol Crossmatch 03/21/21 03/22/21 03/22/21 18:32 07:40 07:46 RBC 3.57 L Hgb 8.8 L 8.4 L Hct 29.1 L 27.0 L MCV 76 L MCH 24 L MCHC 31 L RDW 26.1 H Plt Count [place] % (Auto) Lymph # (Auto) Seg Neutrophils % Seg Neuts % (Manual) 90.0 H Lymphocytes % (Manual) 3.0 L Monocytes % (Manual) Nucleated RBC % 1.0 H Lymphocytes # (Manual) 0.2 L Sodium Potassium 3.1 L Chloride Carbon Dioxide 19 L BUN Creatinine 0.6 L Glucose 74 L POC Glucose Total Creatine Kinase Salicylates Acetaminophen Plasma/Serum Alcohol Crossmatch 03/22/21 03/22/21 03/22/21 15:53 17:03 22:14 RBC Hgb 8.1 L 8.5 L Hct 26.7 L 27.9 L MCV MCH MCHC RDW Plt Count [place] % (Auto) Lymph # (Auto) Seg Neutrophils % Seg Neuts % (Manual) Lymphocytes % (Manual) Monocytes % (Manual) Nucleated RBC % Lymphocytes # (Manual) Sodium Potassium Chloride Carbon Dioxide BUN Creatinine Glucose POC Glucose 114 H Total Creatine Kinase Salicylates Acetaminophen Plasma/Serum Alcohol Crossmatch 03/23/21 03/23/21 03/23/21 00:47 04:38 04:38 RBC Hgb 8.7 L 8.7 L Hct 28.2 L 28.0 L MCV 76 L MCH 23 L MCHC 31 L RDW 25.9 H Plt Count [place] % (Auto) Lymph # (Auto) Seg Neutrophils % Seg Neuts % (Manual) Lymphocytes % (Manual) Monocytes % (Manual) Nucleated RBC % Lymphocytes # (Manual) Sodium Potassium 3.3 L Chloride Carbon Dioxide BUN 7 L Creatinine 0.6 L Glucose 104 H POC Glucose Total Creatine Kinase Salicylates Acetaminophen Plasma/Serum Alcohol Crossmatch 03/23/21 03/24/21 03/24/21 06:03 04:44 04:44 RBC Hgb 9.5 L Hct 30.7 L MCV 77 L MCH 24 L MCHC 31 L RDW 26.3 H Plt Count 444 H [place] % (Auto) Lymph # (Auto) Seg Neutrophils % Seg Neuts % (Manual) 77.0 H Lymphocytes % (Manual) 10.0 L Monocytes % (Manual) 9.0 H Nucleated RBC % Lymphocytes # (Manual) 0.5 L Sodium Potassium Chloride Carbon Dioxide BUN 7 L Creatinine 0.7 L Glucose 115 H POC Glucose 117 H Total Creatine Kinase Salicylates Acetaminophen Plasma/Serum Alcohol Crossmatch 03/24/21 05:21 RBC Hgb Hct MCV MCH MCHC RDW Plt Count [place] % (Auto) Lymph # (Auto) Seg Neutrophils % Seg Neuts % (Manual) Lymphocytes % (Manual) Monocytes % (Manual) Nucleated RBC % Lymphocytes # (Manual) Sodium Potassium Chloride Carbon Dioxide BUN Creatinine Glucose POC Glucose 131 H Total Creatine Kinase Salicylates Acetaminophen Plasma/Serum Alcohol Crossmatch
[2021-03-24] MEDS: MULTIVITAMINS ,THERAPEUTIC TAB PO SCH (09:30)
[2021-03-24] MEDS: FOLIC ACID 1 MG TAB PO SCH (09:30)
[2021-03-24] MEDS: THIAMINE 100 MG TAB PO SCH (09:30)
[2021-03-24] MEDS: chlordiazePOXIDE 25 MG CAP PO SCH ×2 (09:30→22:09)
--- NOTE | 2021-03-24 13:08 | Progress Note ---
<ALEENABLANCHE OroscoElsy - Last Filed: 03/24/21 13:05> Assessment and Plan Assessment and plan: This is a 41-year-old male with a history of alcohol abuse and GI bleed admitted for GI bleed and possible seizure. Neuro: Acute encephalopathy, possible seizure, EtOH abuse -[facility] protocol -s/p Precedex drip -Librium taper -Neurology consulted, appreciate recommendations -EEG completed today -CT head without acute intracranial abnormality -Aspiration and seizure precautions -Folic acid, thiamine, multivitamin CV: SR to SB -On a Cardene patch -Blood pressure monitoring per protocol Respiratory: NAD -SPO2 monitoring -Supplemental oxygen as needed -Pulmonary GI: Severe acute upper GI bleed -Presented with a hemoglobin of 4.4 -S/p 4 units PRBC -GI consulted, appreciate recommendations -03/28 EGD which showed mild erythematous mucosa in the antrum and gastric body, LA grade B esophagitis, no obvious signs of Peralta's esophagus or varices found, no blood in stomach, normal duodenum-Every 6 H&H -S/p Protonix drip now on Protonix twice daily -Clear liquid diet -24 hours -1991 ml : NAD -Trend BMP -Intervene for electrolytes when needed Endo: NAD -S/p hypoglycemia -Accu-Cheks every 6 -Avoid hypoglycemia ID: NAD -CXR with right basilar opacity which may represent a infectious process -Afebrile with out leukocytosis -UA unremarkable -Follow culture data -We will hold off ABX therapy at this time Heme: Acute blood loss anemia -Trend CBC -Transfuse hemoglobin less than 7 -SCDs to bilateral LE while in bed -Avoid chemical prophylaxis in setting of acute GI bleed The high probability of a clinically significant, sudden or life threatening deterioration of the [GI] system(s) required my full and direct attention, intervention and personal management. The aggregate critical care time was [60] minutes. This time is in addition to time spent performing reported procedures but includes the following: [x] Data Review and interpretation [x] Patient assessment and monitoring of vital signs [x] Documentation [x] Medication orders and management Disposition Plan: transfer to floor Total Time Spent with Patient (Minutes): 60 History Interval history: This is a 41-year-old male with EtOH abuse and GI bleed who presented to emergency department on 03/20 with complaints of vomiting blood, bloody stool and possible seizure. Patient states that he believes he had a seizure at home on the bed and his last alcohol intake was on 03/19. Patient states that he drinks 4 beers daily. Recommend emergency department reveals a hemoglobin of 4.4, hyponatremia with sodium of 123 and alcohol intoxication with a plasma alcohol level of 0.09. Patient was given IV fluids, initiated on blood transfusion, placed on CIWA protocol and GI was consulted. Patient was admitted to the hospital service to [facility] for further evaluation management of severe anemia and acute GI bleed. 03/22/21- Patient remains on CIWA protocol, received over 20mg of IV Ativan overnight. On precedex gtt this am. Patient remains restless and confused, on RA SPO2 at 100%. Patient is s/p 4units of PRBCs, plan for possible EGD in the Am. Will continue serial H&H and protonix gtt. Low K repleted, will repeat in the am. Hypoglycemic this am, IVF switched to D51/2NS. 03/23: Precedex gtt wean as tolerated, EGD today, DC protonix gtt to BID do sages, started on librium taper 03/24: precedex gtt off since 03/23 pm. No acute events reported overnight. Patient still has tremors. Downgrade to floor Hospitalist Physical - Constitutional Vitals: Temp Pulse Resp BP Pulse Ox 97.8 F 114 H 18 148/77 97 03/24/21 04:00 03/24/21 09:30 03/24/21 09:30 03/24/21 12:00 03/24/21 12:00 General appearance: Present: no acute distress - EENT Eyes: Present: PERRL, EOM intact ENT: hearing intact, clear oral mucosa, dentition normal - Neck Neck: Present: supple, normal ROM - Respiratory Respiratory effort: normal Respiratory: bilateral: CTA - Cardiovascular Rhythm: regular Heart Sounds: Present: S1 & S2. Absent: systolic murmur, diastolic murmur - Extremities Extremities: no ischemia, pulses intact, pulses symmetrical, No edema, normal temperature, normal color, Full ROM Peripheral Pulses: within normal limits - Abdominal General gastrointestinal: soft, non-tender, non-distended, normal bowel sounds - Integumentary Integumentary: Present: warm, dry - Psychiatric Psychiatric: cooperative - Neurologic Neurologic: CNII-XII intact, no focal deficits, moves all extremities - Allied Health Allied health notes reviewed: nursing, RT, social work Results - Labs CBC & Chem 7: 03/24/21 04:44 03/24/21 04:44 Labs: Laboratory Last Values WBC 4.9 K/mm3 (4.5-11.0) 03/24/21 04:44 RBC 4.02 M/mm3 (3.65-5.03) 03/24/21 04:44 Hgb 9.5 gm/dl (11.8-15.2) L 03/24/21 04:44 Hct 30.7 % (35.5-45.6) L 03/24/21 04:44 MCV 77 fl (84-94) L 03/24/21 04:44 MCH 24 pg (28-32) L 03/24/21 04:44 MCHC 31 % (32-34) L 03/24/21 04:44 RDW 26.3 % (13.2-15.2) H 03/24/21 04:44 Plt Count 444 K/mm3 (140-440) H 03/24/21 04:44 Lymph % (Auto) 13.4 % (13.4-35.0) 03/20/21 07:30 [place] % (Auto) 9.2 % (0.0-7.3) H 03/20/21 07:30 Eos % (Auto) 0.3 % (0.0-4.3) 03/20/21 07:30 Baso % (Auto) 1.8 % (0.0-1.8) 03/20/21 07:30 Lymph # (Auto) 0.8 K/mm3 (1.2-5.4) L 03/20/21 07:30 [place] # (Auto) 0.5 K/mm3 (0.0-0.8) 03/20/21 07:30 Eos # (Auto) 0.0 K/mm3 (0.0-0.4) 03/20/21 07:30 Baso # (Auto) 0.1 K/mm3 (0.0-0.1) 03/20/21 07:30 Add Manual Diff Complete 03/24/21 04:44 Total Counted 100 03/24/21 04:44 Seg Neutrophils % 75.3 % (40.0-70.0) H 03/20/21 07:30 Seg Neuts % (Manual) 77.0 % (40.0-70.0) H 03/24/21 04:44 Band Neutrophils % 1.0 % 03/22/21 07:46 Lymphocytes % (Manual) 10.0 % (13.4-35.0) L 03/24/21 04:44 Reactive Lymphs % (Man) 1.0 % 03/24/21 04:44 Monocytes % (Manual) 9.0 % (0.0-7.3) H 03/24/21 04:44 Eosinophils % (Manual) 3.0 % (0.0-4.3) 03/24/21 04:44 Basophils % (Manual) 1.0 % (0.0-1.8) 03/22/21 07:46 Nucleated RBC % Not Reportable 03/24/21 04:44 Seg Neutrophils # 4.4 K/mm3 (1.8-7.7) 03/20/21 07:30 Seg Neutrophils # Man 3.8 K/mm3 (1.8-7.7) 03/24/21 04:44 Band Neutrophils # 0.0 K/mm3 03/24/21 04:44 Lymphocytes # (Manual) 0.5 K/mm3 (1.2-5.4) L 03/24/21 04:44 Abs React Lymphs (Man) 0.0 K/mm3 03/24/21 04:44 Monocytes # (Manual) 0.4 K/mm3 (0.0-0.8) 03/24/21 04:44 Eosinophils # (Manual) 0.1 K/mm3 (0.0-0.4) 03/24/21 04:44 Basophils # (Manual) 0.0 K/mm3 (0.0-0.1) 03/24/21 04:44 Metamyelocytes # 0.0 K/mm3 03/24/21 04:44 Myelocytes # 0.0 K/mm3 03/24/21 04:44 Promyelocytes # 0.0 K/mm3 03/24/21 04:44 Blast Cells # 0.0 K/mm3 03/24/21 04:44 WBC Morphology Not Reportable 03/24/21 04:44 Hypersegmented Neuts Not Reportable 03/24/21 04:44 Hyposegmented Neuts Not Reportable 03/24/21 04:44 Hypogranular Neuts Not Reportable 03/24/21 04:44 Smudge Cells Not Reportable 03/24/21 04:44 Toxic Granulation Few 03/24/21 04:44 Toxic Vacuolation Not Reportable 03/24/21 04:44 Dohle Bodies Not Reportable 03/24/21 04:44 Pelger-Huet Anomaly Not Reportable 03/24/21 04:44 Eduard Rods Not Reportable 03/24/21 04:44 Platelet Estimate Consistent w auto 03/24/21 04:44 Clumped Platelets Not Reportable 03/24/21 04:44 Plt Clumps, EDTA Not Reportable 03/24/21 04:44 Large Platelets 1+ 03/24/21 04:44 Giant Platelets Not Reportable 03/24/21 04:44 Platelet Satelliting Not Reportable 03/24/21 04:44 Plt Morphology Comment Not Reportable 03/24/21 04:44 RBC Morphology Not Reportable 03/24/21 04:44 Dimorphic RBCs Not Reportable 03/24/21 04:44 Polychromasia 1+ 03/24/21 04:44 Hypochromasia 1+ 03/24/21 04:44 Poikilocytosis 1+ 03/24/21 04:44 Anisocytosis 3+ 03/24/21 04:44 Microcytosis 1+ 03/24/21 04:44 Macrocytosis Not Reportable 03/24/21 04:44 Spherocytes Few 03/24/21 04:44 Pappenheimer Bodies Not Reportable 03/24/21 04:44 Sickle Cells Not Reportable 03/24/21 04:44 Target Cells Not Reportable 03/24/21 04:44 Tear Drop Cells Not Reportable 03/24/21 04:44 Ovalocytes Not Reportable 03/24/21 04:44 Helmet Cells Not Reportable 03/24/21 04:44 Schneider-Lazy Y U Bodies Not Reportable 03/24/21 04:44 [place] Rings Not Reportable 03/24/21 04:44 [place] Cells Not Reportable 03/24/21 04:44 Bite Cells Not Reportable 03/24/21 04:44 Crenated Cell Not Reportable 03/24/21 04:44 Elliptocytes Not Reportable 03/24/21 04:44 Acanthocytes (Spur) Not Reportable 03/24/21 04:44 Rouleaux Not Reportable 03/24/21 04:44 Hemoglobin C Crystals Not Reportable 03/24/21 04:44 Schistocytes Not Reportable 03/24/21 04:44 Malaria parasites Not Reportable 03/24/21 04:44 Herminio Bodies Not Reportable 03/24/21 04:44 Hem Pathologist Commnt No 03/24/21 04:44 PT 14.3 Sec. (12.2-14.9) 03/20/21 07:30 INR 1.00 (0.87-1.13) 03/20/21 07:30 APTT 28.2 Sec. (24.2-36.6) 03/20/21 07:30 Sodium 138 mmol/L (137-145) 03/24/21 04:44 Potassium 3.7 mmol/L (3.6-5.0) 03/24/21 04:44 Chloride 101.0 mmol/L (98-107) 03/24/21 04:44 Carbon Dioxide 29 mmol/L (22-30) D 03/24/21 04:44 Anion Gap 12 mmol/L 03/24/21 04:44 BUN 7 mg/dL (9-20) L 03/24/21 04:44 Creatinine 0.7 mg/dL (0.8-1.3) L 03/24/21 04:44 Estimated GFR > 60 ml/min 03/24/21 04:44 BUN/Creatinine Ratio 10 % 03/24/21 04:44 Glucose 115 mg/dL (75-100) H 03/24/21 04:44 POC Glucose 85 mg/dL (70-105) 03/24/21 12:01 Calcium 8.9 mg/dL (8.4-10.2) 03/24/21 04:44 Phosphorus 3.90 mg/dL (2.5-4.5) 03/24/21 04:44 Magnesium 2.10 mg/dL (1.7-2.3) 03/24/21 04:44 Total Bilirubin 0.40 mg/dL (0.1-1.2) 03/20/21 07:30 AST 36 units/L (5-40) 03/20/21 07:30 ALT 23 units/L (7-56) 03/20/21 07:30 Alkaline Phosphatase 41 units/L (35-129) 03/20/21 07:30 Total Creatine Kinase 400 units/L (55-170) H 03/20/21 07:30 Total Protein 6.9 g/dL (6.3-8.2) 03/20/21 07:30 Albumin 3.9 g/dL (3.9-5) 03/20/21 07:30 Albumin/Globulin Ratio 1.3 % 03/20/21 07:30 TSH 2.410 mlU/mL (0.270-4.200) 03/20/21 07:30 Urine Color Yellow (Yellow) 03/20/21: Urine Turbidity Clear (Clear) 03/20/21: Urine pH 6.0 (5.0-7.0) 03/20/21 09: Ur Specific [place] 1.015 (1.003-1.030) 03/20/21 09: Urine Protein <15 mg/dl mg/dL (Negative) 03/20/21: Urine Glucose (UA) Neg mg/dL (Negative) 03/20/21: Urine Ketones Neg mg/dL (Negative) 03/20/21: Urine Blood Neg (Negative) 03/20/21: Urine Nitrite Neg (Negative) 03/20/21: Urine Bilirubin Neg (Negative) 03/20/21: Urine Urobilinogen < 2.0 mg/dL (<2.0) 03/20/21: Ur Leukocyte Esterase Neg (Negative) 03/20/21: Urine WBC (Auto) < 1.0 /HPF (0.0-6.0) 03/20/21: Urine RBC (Auto) < 1.0 /HPF (0.0-6.0) 03/20/21: Salicylates < 0.3 mg/dL (2.8-20.0) L 03/20/21 07:30 Urine Opiates Screen Negative 03/20/21: Urine Methadone Screen Negative 03/20/21: Acetaminophen 5.0 ug/mL (10.0-30.0) L 03/20/21 07:30 Ur Barbiturates Screen Negative 12/10/21 09:27 Ur Phencyclidine Scrn Negative 03/20/21 09:27 Ur Amphetamines Screen Negative 03/20/21 09:27 U Benzodiazepines Scrn Negative 03/20/21 09:27 Urine Cocaine Screen Negative 03/20/21 09:27 U Marijuana (THC) Screen Negative 03/20/21 09:27 Drugs of Abuse Note Disclamer 03/20/21 09:27 Plasma/Serum Alcohol 0.09 % (0-0.07) H 03/20/21 07:30 Blood Type O NEGATIVE 03/20/21 07:25 Antibody Screen Negative 03/20/21 07:25 Crossmatch See Detail 03/20/21 07:25 Culver/IV: Voiding Method Condom Catheter Active Medications - Current Medications Current Medications: Generic Name Dose Route Start Last Admin Trade Name Freq PRN Reason Stop Dose Admin Chlordiazepoxide HCl 25 mg 03/24/21 10:00 03/24/21 09:30 Chlordiazepoxide 25 Mg Cap PO 03/24/21 22:01 25 mg Q12HR BOYD Administration Chlordiazepoxide HCl 25 mg 03/25/21 10:00 Chlordiazepoxide 25 Mg Cap PO 03/25/21 10:01 DAILY BOYD Chlordiazepoxide HCl 20 mg 03/26/21 10:00 Chlordiazepoxide 5 Mg Cap PO 03/26/21 10:01 DAILY BOYD Chlordiazepoxide HCl 10 mg 03/27/21 10:00 Chlordiazepoxide 5 Mg Cap PO 03/27/21 10:01 DAILY BOYD Clonidine HCl 0.2 mg 03/29/21 10:00 Clonidine Tts 0.2 Mg/24 Hr Patch TD Noriega BOYD Dextrose 50 ml 03/22/21 11:13 Dextrose 50% In Water (25gm) 50 Ml Syringe IV Q30MIN PRN Hypoglycemia Protocol Folic Acid 1 mg 03/24/21 10:00 03/24/21 09:30 Folic Acid 1 Mg Tab PO 1 mg DAILY BOYD Administration Lorazepam 2 mg 03/20/21 07:30 03/23/21 11:29 Lorazepam 2 Mg/Ml Vial IV 2 mg Q1HR PRN Administration CIWA-[facility] 8-15 Lorazepam 4 mg 03/20/21 07:30 03/22/21 07:05 Lorazepam 2 Mg/Ml Vial IV 4 mg Q1HR PRN Administration [facility] 16-25 Multivitamins 1 each 03/23/21 13:00 03/24/21 09:30 Multivitamins ,Therapeutic Tab PO 1 each QDAY BOYD Administration Pantoprazole Sodium 40 mg 03/23/21 16:30 03/24/21 07:32 Pantoprazole 40 Mg Tab PO 40 mg BIDAC BOYD Administration Thiamine HCl 100 mg 03/24/21 10:00 03/24/21 09:30 Thiamine 100 Mg Tab PO 100 mg QDAY BOYD Administration Nutrition/Malnutrition Assess - Dietary Evaluation Nutrition/Malnutrition Findings: Nutrition Notes Start: 03/21/21 12:54 Freq: Status: Active Protocol: Document 03/23/21 10:49 EVA (Rec: 03/23/21 10:52 [facility] [id number]) Nutrition Notes Initial or Follow up Reassessment Other Pertinent Diagnosis Acute upper GIB, anemia, seizure, EtOH dependence and withdrawal Current Diet NPO Labs/Tests K 3.3 Pertinent Medications Precedex gtt, D5 1/2NS at 125ml/hr, Folic acid gtt, Thiamine gtt, 10mEq KCl at 100ml/hr (x 4 bags) Height 5 ft 6 in Weight 81.647 kg Dexter Body Weight (kg) 64.54 BMI 29.0 Weight Status Overweight Subjective/Other Information Day 3 NPO. Pt in 4-point restraints; actively going through EtOH withdrawal; on CIWA protocol. EGD scheduled for today. Burn Absent Trauma Absent Minimum of two criteria No #1 Nutrition Diagnosis Altered GI function As Evidenced by Signs and Symptoms pt remains NPO Diagnosis Progress(for reassessment Continues documentation) Is patient on ventilator? No Is Patient Ambulatory and/or Out of Bed No REE-([facility]-confined to bed) 2004.920 Calculation Used for Recommendations [facility] Additional Notes Pro needs 1.2-2g/k-163g/ day Fluid needs 1ml/kcal Nutrition Intervention Change Diet Order: Diet advancement when medically feasible Goal #1 Either advance diet or start NTR support to meet nutrient needs Follow-Up By: 03/25/21 Additional Comments F/U: diet advancement vs initiation of NTR support <CAROL ANN BACK - Last Filed: 03/24/21 18:18> Assessment and Plan Assessment and plan: I concur with the aforementioned note listed above. Hospitalist Physical - Constitutional Vitals: Temp Pulse Resp BP Pulse Ox 97.8 F 80 16 127/87 100 03/24/21 04:00 03/24/21 17:00 03/24/21 17:00 03/24/21 17:00 03/24/21 16:30 Results - Labs CBC & Chem 7: 03/24/21 04:44 03/24/21 04:44 Labs: Laboratory Last Values WBC 4.9 K/mm3 (4.5-11.0) 03/24/21 04:44 RBC 4.02 M/mm3 (3.65-5.03) 03/24/21 04:44 Hgb 9.5 gm/dl (11.8-15.2) L 03/24/21 04:44 Hct 30.7 % (35.5-45.6) L 03/24/21 04:44 MCV 77 fl (84-94) L 03/24/21 04:44 MCH 24 pg (28-32) L 03/24/21 04:44 MCHC 31 % (32-34) L 03/24/21 04:44 RDW 26.3 % (13.2-15.2) H 03/24/21 04:44 Plt Count 444 K/mm3 (140-440) H 03/24/21 04:44 Lymph % (Auto) 13.4 % (13.4-35.0) 03/20/21 07:30 Bea[place] % (Auto) 9.2 % (0.0-7.3) H 03/20/21 07:30 Eos % (Auto) 0.3 % (0.0-4.3) 03/20/21 07:30 Baso % (Auto) 1.8 % (0.0-1.8) 03/20/21 07:30 Lymph # (Auto) 0.8 K/mm3 (1.2-5.4) L 03/20/21 07:30 [place] # (Auto) 0.5 K/mm3 (0.0-0.8) 03/20/21 07:30 Eos # (Auto) 0.0 K/mm3 (0.0-0.4) 03/20/21 07:30 Baso # (Auto) 0.1 K/mm3 (0.0-0.1) 03/20/21 07:30 Add Manual Diff Complete 03/24/21 04:44 Total Counted 100 03/24/21 04:44 Seg Neutrophils % 75.3 % (40.0-70.0) H 03/20/21 07:30 Seg Neuts % (Manual) 77.0 % (40.0-70.0) H 03/24/21 04:44 Band Neutrophils % 1.0 % 03/22/21 07:46 Lymphocytes % (Manual) 10.0 % (13.4-35.0) L 03/24/21 04:44 Reactive Lymphs % (Man) 1.0 % 03/24/21 04:44 Monocytes % (Manual) 9.0 % (0.0-7.3) H 03/24/21 04:44 Eosinophils % (Manual) 3.0 % (0.0-4.3) 03/24/21 04:44 Basophils % (Manual) 1.0 % (0.0-1.8) 03/22/21 07:46 Nucleated RBC % Not Reportable 03/24/21 04:44 Seg Neutrophils # 4.4 K/mm3 (1.8-7.7) 03/20/21 07:30 Seg Neutrophils # Man 3.8 K/mm3 (1.8-7.7) 03/24/21 04:44 Band Neutrophils # 0.0 K/mm3 03/24/21 04:44 Lymphocytes # (Manual) 0.5 K/mm3 (1.2-5.4) L 03/24/21 04:44 Abs React Lymphs (Man) 0.0 K/mm3 03/24/21 04:44 Monocytes # (Manual) 0.4 K/mm3 (0.0-0.8) 03/24/21 04:44 Eosinophils # (Manual) 0.1 K/mm3 (0.0-0.4) 03/24/21 04:44 Basophils # (Manual) 0.0 K/mm3 (0.0-0.1) 03/24/21 04:44 Metamyelocytes # 0.0 K/mm3 03/24/21 04:44 Myelocytes # 0.0 K/mm3 03/24/21 04:44 Promyelocytes # 0.0 K/mm3 03/24/21 04:44 Blast Cells # 0.0 K/mm3 03/24/21 04:44 WBC Morphology Not Reportable 03/24/21 04:44 Hypersegmented Neuts Not Reportable 03/24/21 04:44 Hyposegmented Neuts Not Reportable 03/24/21 04:44 Hypogranular Neuts Not Reportable 03/24/21 04:44 Smudge Cells Not Reportable 03/24/21 04:44 Toxic Granulation Few 03/24/21 04:44 Toxic Vacuolation Not Reportable 03/24/21 04:44 Dohle Bodies Not Reportable 03/24/21 04:44 Pelger-Huet Anomaly Not Reportable 03/24/21 04:44 Eduard Rods Not Reportable 03/24/21 04:44 Platelet Estimate Consistent w auto 03/24/21 04:44 Clumped Platelets Not Reportable 03/24/21 04:44 Plt Clumps, EDTA Not Reportable 03/24/21 04:44 Large Platelets 1+ 03/24/21 04:44 Giant Platelets Not Reportable 03/24/21 04:44 Platelet Satelliting Not Reportable 03/24/21 04:44 Plt Morphology Comment Not Reportable 03/24/21 04:44 RBC Morphology Not Reportable 03/24/21 04:44 Dimorphic RBCs Not Reportable 03/24/21 04:44 Polychromasia 1+ 03/24/21 04:44 Hypochromasia 1+ 03/24/21 04:44 Poikilocytosis 1+ 03/24/21 04:44 Anisocytosis 3+ 03/24/21 04:44 Microcytosis 1+ 03/24/21 04:44 Macrocytosis Not Reportable 03/24/21 04:44 Spherocytes Few 03/24/21 04:44 Pappenheimer Bodies Not Reportable 03/24/21 04:44 Sickle Cells Not Reportable 03/24/21 04:44 Target Cells Not Reportable 03/24/21 04:44 Tear Drop Cells Not Reportable 03/24/21 04:44 Ovalocytes Not Reportable 03/24/21 04:44 Helmet Cells Not Reportable 03/24/21 04:44 Schneider-Lazy Y U Bodies Not Reportable 03/24/21 04:44 [place] Rings Not Reportable 03/24/21 04:44 [place] Cells Not Reportable 03/24/21 04:44 Bite Cells Not Reportable 03/24/21 04:44 Crenated Cell Not Reportable 03/24/21 04:44 Elliptocytes Not Reportable 03/24/21 04:44 Acanthocytes (Spur) Not Reportable 03/24/21 04:44 Rouleaux Not Reportable 03/24/21 04:44 Hemoglobin C Crystals Not Reportable 03/24/21 04:44 Schistocytes Not Reportable 03/24/21 04:44 Malaria parasites Not Reportable 03/24/21 04:44 Herminio Bodies Not Reportable 03/24/21 04:44 Hem Pathologist Commnt No 03/24/21 04:44 PT 14.3 Sec. (12.2-14.9) 03/20/21 07:30 INR 1.00 (0.87-1.13) 03/20/21 07:30 APTT 28.2 Sec. (24.2-36.6) 03/20/21 07:30 Sodium 138 mmol/L (137-145) 03/24/21 04:44 Potassium 3.7 mmol/L (3.6-5.0) 03/24/21 04:44 Chloride 101.0 mmol/L (98-107) 03/24/21 04:44 Carbon Dioxide 29 mmol/L (22-30) D 03/24/21 04:44 Anion Gap 12 mmol/L 03/24/21 04:44 BUN 7 mg/dL (9-20) L 03/24/21 04:44 Creatinine 0.7 mg/dL (0.8-1.3) L 03/24/21 04:44 Estimated GFR > 60 ml/min 03/24/21 04:44 BUN/Creatinine Ratio 10 % 03/24/21 04:44 Glucose 115 mg/dL (75-100) H 03/24/21 04:44 POC Glucose 84 mg/dL (70-105) 03/24/21 17:32 Calcium 8.9 mg/dL (8.4-10.2) 03/24/21 04:44 Phosphorus 3.90 mg/dL (2.5-4.5) 03/24/21 04:44 Magnesium 2.10 mg/dL (1.7-2.3) 03/24/21 04:44 Total Bilirubin 0.40 mg/dL (0.1-1.2) 03/20/21 07:30 AST 36 units/L (5-40) 03/20/21 07:30 ALT 23 units/L (7-56) 03/20/21 07:30 Alkaline Phosphatase 41 units/L (35-129) 03/20/21 07:30 Total Creatine Kinase 400 units/L (55-170) H 03/20/21 07:30 Total Protein 6.9 g/dL (6.3-8.2) 03/20/21 07:30 Albumin 3.9 g/dL (3.9-5) 03/20/21 07:30 Albumin/Globulin Ratio 1.3 % 03/20/21 07: TSH 2.410 mlU/mL (0.270-4.200) 03/20/21 07:30 Urine Color Yellow (Yellow) 03/20/21 09: Urine Turbidity Clear (Clear) 03/20/21 09: Urine pH 6.0 (5.0-7.0) 03/20/21 09: Ur Specific [place] 1.015 (1.003-1.030) 03/20/21 09:27 Urine Protein <15 mg/dl mg/dL (Negative) 03/20/21 09:27 Urine Glucose (UA) Neg mg/dL (Negative) 03/20/21: Urine Ketones Neg mg/dL (Negative) 03/20/21 09: Urine Blood Neg (Negative) 03/20/21 09: Urine Nitrite Neg (Negative) 03/20/21 09: Urine Bilirubin Neg (Negative) 03/20/21: Urine Urobilinogen < 2.0 mg/dL (<2.0) 03/20/21 09:27 Ur Leukocyte Esterase Neg (Negative) 03/20/21 09: Urine WBC (Auto) < 1.0 /HPF (0.0-6.0) 03/20/21: Urine RBC (Auto) < 1.0 /HPF (0.0-6.0) 03/20/21 09:27 Salicylates < 0.3 mg/dL (2.8-20.0) L 03/20/21 07:30 Urine Opiates Screen Negative 03/20/21: Urine Methadone Screen Negative 03/20/21 09: Acetaminophen 5.0 ug/mL (10.0-30.0) L 03/20/21 07:30 Ur Barbiturates Screen Negative 03/20/21 09:27 Ur Phencyclidine Scrn Negative 03/20/21 09:27 Ur Amphetamines Screen Negative 03/20/21 09:27 U Benzodiazepines Scrn Negative 03/20/21 09:27 Urine Cocaine Screen Negative 03/20/21 09:27 U Marijuana (THC) Screen Negative 03/20/21 09:27 Drugs of Abuse Note Disclamer 03/20/21 09:27 Plasma/Serum Alcohol 0.09 % (0-0.07) H 03/20/21 07:30 Blood Type O NEGATIVE 03/20/21 07:25 Antibody Screen Negative 03/20/21 07:25 Crossmatch See Detail 03/20/21 07:25 Culver/IV: Voiding Method Condom Catheter Active Medications - Current Medications Current Medications: Generic Name Dose Route Start Last Admin Trade Name Freq PRN Reason Stop Dose Admin Chlordiazepoxide HCl 25 mg 03/24/21 10:00 03/24/21 09:30 Chlordiazepoxide 25 Mg Cap PO 03/24/21 22:01 25 mg Q12HR BOYD Administration Chlordiazepoxide HCl 25 mg 03/25/21 10:00 Chlordiazepoxide 25 Mg Cap PO 03/25/21 10:01 DAILY BOYD Chlordiazepoxide HCl 20 mg 03/26/21 10:00 Chlordiazepoxide 5 Mg Cap PO 03/26/21 10:01 DAILY BOYD Chlordiazepoxide HCl 10 mg 03/27/21 10:00 Chlordiazepoxide 5 Mg Cap PO 03/27/21 10:01 DAILY BOYD Clonidine HCl 0.2 mg 03/29/21 10:00 Clonidine Tts 0.2 Mg/24 Hr Patch TD Noriega BOYD Dextrose 50 ml 03/22/21 11:13 Dextrose 50% In Water (25gm) 50 Ml Syringe IV Q30MIN PRN Hypoglycemia Protocol Folic Acid 1 mg 03/24/21 10:00 03/24/21 09:30 Folic Acid 1 Mg Tab PO 1 mg DAILY BOYD Administration Lorazepam 2 mg 03/20/21 07:30 03/24/21 17:17 Lorazepam 2 Mg/Ml Vial IV 2 mg Q1HR PRN Administration [facility] 8-15 Lorazepam 4 mg 03/20/21 07:30 03/22/21 07:05 Lorazepam 2 Mg/Ml Vial IV 4 mg Q1HR PRN Administration [facility] 16-25 Multivitamins 1 each 03/23/21 13:00 03/24/21 09:30 Multivitamins ,Therapeutic Tab PO 1 each QDAY BOYD Administration Pantoprazole Sodium 40 mg 03/23/21 16:30 03/24/21 17:15 Pantoprazole 40 Mg Tab PO 40 mg BIDAC BOYD Administration Thiamine HCl 100 mg 03/24/21 10:00 03/24/21 09:30 Thiamine 100 Mg Tab PO 100 mg QDAY BOYD Administration Nutrition/Malnutrition Assess - Dietary Evaluation Nutrition/Malnutrition Findings: Nutrition Notes Start: 03/21/21 12:54 Freq: Status: Active Protocol: Document 03/23/21 10:49 EVA (Rec: 03/23/21 10:52 EVA [email or web address]) Nutrition Notes Initial or Follow up Reassessment Other Pertinent Diagnosis Acute upper GIB, anemia, seizure, EtOH dependence and withdrawal Current Diet NPO Labs/Tests K 3.3 Pertinent Medications Precedex gtt, D5 1/2NS at 125ml/hr, Folic acid gtt, Thiamine gtt, 10mEq KCl at 100ml/hr (x 4 bags) Height 5 ft 6 in Weight 81.647 kg Dexter Body Weight (kg) 64.54 BMI 29.0 Weight Status Overweight Subjective/Other Information Day 3 NPO. Pt in 4-point restraints; actively going through EtOH withdrawal; on CINJ protocol. EGD scheduled for today. Burn Absent Trauma Absent Minimum of two criteria No #1 Nutrition Diagnosis Altered GI function As Evidenced by Signs and Symptoms pt remains NPO Diagnosis Progress(for reassessment Continues documentation) Is patient on ventilator? No Is Patient Ambulatory and/or Out of Bed No REE-(Green-St. Jeor-confined to bed) [phone] Calculation Used for Recommendations [facility] Additional Notes Pro needs 1.2-2g/k-163g/ day Fluid needs 1ml/kcal Nutrition Intervention Change Diet Order: Diet advancement when medically feasible Goal #1 Either advance diet or start NTR support to meet nutrient needs Follow-Up By: 03/25/21 Additional Comments F/U: diet advancement vs initiation of NTR support
--- NOTE | 2021-03-24 14:26 | Electrocardiograph Report ---
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
[2021-03-24] MEDS: LORazepam 2 MG/ML VIAL IV PRN ×2 (14:59→17:17)
--- NOTE | 2021-03-24 17:12 | Gastroenterology Progress Note ---
Assessment and Plan This is a 41 yo male with h/o significant alcohol use admitted for possible alcohol withdrawal seizure. GI consulted for GI bleed with melena and hematemesis. Found to have Hgb down to 4.4. # Anemia # GI bleed - reported h/o melena and hematemesis prior to admission. - Hgb down to 4.4 on admission s/p 4 units of PRBC. - no overt signs of GI bleeding since admission. - going through alcohol withdrawal with high CIWA score. Transferred to ICU. - s/p EGD on 03/23/2021 showing moderate esophagitis, gastritis. No active bleeding. Rec - monitor H/H. - cont with PPI PO bid. - outpatient follow up in GI clinic. Repeat EGD in 6-8 weeks to ensure healing and rule out BE. - will sign off. Subjective Date of service: 03/24/21 Interval history: Patient still anxious . No bleeding symptoms. Objective - Constitutional Vitals: Temp Pulse Resp BP Pulse Ox 97.8 F 114 H 18 148/77 97 03/24/21 04:00 03/24/21 09:30 03/24/21 09:30 03/24/21 12:00 03/24/21 12:00 General appearance: mild distress - EENT ENT: hearing intact - Respiratory Respiratory effort: normal - Cardiovascular Rhythm: regular Heart Sounds: Present: S1 & S2 - Gastrointestinal General gastrointestinal: Present: soft, non-tender, non-distended - Integumentary Integumentary: Present: clear, warm - Neurologic Neurological: disoriented - Labs CBC & Chem 7: 03/24/21 04:44 03/24/21 04:44 Labs: Laboratory Results - last 24 hr 03/24/21 03/24/21 03/24/21 00:02 04:44 04:44 WBC 4.9 RBC 4.02 Hgb 9.5 L Hct 30.7 L MCV 77 L MCH 24 L MCHC 31 L RDW 26.3 H Plt Count 444 H Add Manual Diff Complete Total Counted 100 Seg Neuts % (Manual) 77.0 H Lymphocytes % (Manual) 10.0 L Reactive Lymphs % (Man) 1.0 Monocytes % (Manual) 9.0 H Eosinophils % (Manual) 3.0 Nucleated RBC % Not Reportable Seg Neutrophils # Man 3.8 Band Neutrophils # 0.0 Lymphocytes # (Manual) 0.5 L Abs React Lymphs (Man) 0.0 Monocytes # (Manual) 0.4 Eosinophils # (Manual) 0.1 Basophils # (Manual) 0.0 Metamyelocytes # 0.0 Myelocytes # 0.0 Promyelocytes # 0.0 Blast Cells # 0.0 WBC Morphology Not Reportable Hypersegmented Neuts Not Reportable Hyposegmented Neuts Not Reportable Hypogranular Neuts Not Reportable Smudge Cells Not Reportable Toxic Granulation Few Toxic Vacuolation Not Reportable Dohle Bodies Not Reportable Pelger-Huet Anomaly Not Reportable Eduard Rods Not Reportable Platelet Estimate Consistent w auto Clumped Platelets Not Reportable Plt Clumps, EDTA Not Reportable Large Platelets 1+ Giant Platelets Not Reportable Platelet Satelliting Not Reportable Plt Morphology Comment Not Reportable RBC Morphology Not Reportable Dimorphic RBCs Not Reportable Polychromasia 1+ Hypochromasia 1+ Poikilocytosis 1+ Anisocytosis 3+ Microcytosis 1+ Macrocytosis Not Reportable Spherocytes Few Pappenheimer Bodies Not Reportable Sickle Cells Not Reportable Target Cells Not Reportable Tear Drop Cells Not Reportable Ovalocytes Not Reportable Helmet Cells Not Reportable Schneider-[place] Bodies Not Reportable [place] Rings Not Reportable Lena Cells Not Reportable Bite Cells Not Reportable Crenated Cell Not Reportable Elliptocytes Not Reportable Acanthocytes (Spur) Not Reportable Rouleaux Not Reportable Hemoglobin C Crystals Not Reportable Schistocytes Not Reportable Malaria parasites Not Reportable Herminio Bodies Not Reportable Hem Pathologist Commnt No Sodium 138 Potassium 3.7 Chloride 101.0 Carbon Dioxide 29 D Anion Gap 12 BUN 7 L Creatinine 0.7 L Estimated GFR > 60 BUN/Creatinine Ratio 10 Glucose 115 H POC Glucose 83 Calcium 8.9 Phosphorus 3.90 Magnesium 2.10 03/24/21 03/24/21 05:21 12:01 WBC RBC Hgb Hct MCV MCH MCHC RDW Plt Count Add Manual Diff Total Counted Seg Neuts % (Manual) Lymphocytes % (Manual) Reactive Lymphs % (Man) Monocytes % (Manual) Eosinophils % (Manual) Nucleated RBC % Seg Neutrophils # Man Band Neutrophils # Lymphocytes # (Manual) Abs React Lymphs (Man) Monocytes # (Manual) Eosinophils # (Manual) Basophils # (Manual) Metamyelocytes # Myelocytes # Promyelocytes # Blast Cells # WBC Morphology Hypersegmented Neuts Hyposegmented Neuts Hypogranular Neuts Smudge Cells Toxic Granulation Toxic Vacuolation Dohle Bodies Pelger-Huet Anomaly Eduard Rods Platelet Estimate Clumped Platelets Plt Clumps, EDTA Large Platelets Giant Platelets Platelet Satelliting Plt Morphology Comment RBC Morphology Dimorphic RBCs Polychromasia Hypochromasia Poikilocytosis Anisocytosis Microcytosis Macrocytosis Spherocytes Pappenheimer Bodies Sickle Cells Target Cells Tear Drop Cells Ovalocytes Helmet Cells Schneider-[place] Bodies [place] Rings Lena Cells Bite Cells Crenated Cell Elliptocytes Acanthocytes (Spur) Rouleaux Hemoglobin C Crystals Schistocytes Malaria parasites Herminio Bodies Hem Pathologist Commnt Sodium Potassium Chloride Carbon Dioxide Anion Gap BUN Creatinine Estimated GFR BUN/Creatinine Ratio Glucose POC Glucose 131 H 85 Calcium Phosphorus Magnesium
[2021-03-25] MEDS: LORazepam 2 MG/ML VIAL IV PRN ×2 (05:00→08:35)
[2021-03-25 05:25] VITALS: BP 132/89
[2021-03-25 07:26] LABS: Hemoglobin 9.5 gm/dl (11.8-15.2); Mean Corpuscular HGB Conc 31 % (32-34); Mean Corpuscular Volume 76 fl (84-94); Platelet Count 542 K/mm3 (140-440); Red Blood Count 4.11 M/mm3 (3.65-5.03)
[2021-03-25 07:28] LABS: Red Cell Distribution Width 25.3 % (13.2-15.2)
[2021-03-25 07:46] LABS: Blood Urea Nitrogen 7 mg/dL (9-20); Calcium 9.2 mg/dL (8.4-10.2); Hemolysis Index 0
[2021-03-25 07:52] LABS: BUN/Creatinine Ratio 10
[2021-03-25] MEDS: MULTIVITAMINS ,THERAPEUTIC TAB PO SCH (08:33)
[2021-03-25] MEDS: PANTOPRAZOLE 40 MG TAB PO SCH (08:33)
[2021-03-25] MEDS: FOLIC ACID 1 MG TAB PO SCH (08:34)
[2021-03-25] MEDS: THIAMINE 100 MG TAB PO SCH (08:34)
[2021-03-25] MEDS ORDERED: chlordiazePOXIDE 25 MG CAP PO SCH (10:00)
--- NOTE | 2021-03-25 12:21 | Electrocardiograph Report ---
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
--- NOTE | 2021-03-25 13:58 | Discharge Summary ---
Providers - Providers Date of Admission: 03/20/21 08:28 Date of discharge: 03/25/21 Attending physician: CAROL ANN BACK MD 03/20/21 07:25 Consult to Physician [CONS] Stat Comment: Consulting Provider: YAA THOMAS Physician Instructions: Reason For Exam: etoh abuse, gi bleed 03/22/21 07:48 Consult to Physician [CONS] Routine Comment: Consulting Provider: CHOCO LIU Physician Instructions: Reason For Exam: delirium tremens 03/22/21 15:41 Consult to Physician [CONS] Routine Comment: Consulting Provider: MARY KLINE Physician Instructions: Reason For Exam: Seizure Primary care physician: SECURITY MONITOR Hospitalization Reason for admission: Acute upper GI bleed Condition: Serious Pertinent studies: Reviewed Procedures: EGD Hospital course: Patient is a 41-year-old male with past medical history of alcohol dependence and prior GI bleed who presented with upper GI bleed and hemoglobin of 4.4. Patient was transfused with 4 units of packed RBCs. The patient was also actively withdrawing from alcohol and was started on a Precedex drip and CIWA protocol. Gastroenterology performed an EGD that revealed some "mildly erythematous mucosa in the antrum and gastric body, LA grade B esophagitis, no obvious signs of Peralta's esophagus or varices. No active site of bleeding was found". The patient was transitioned off of a Protonix drip to oral Protonix twice daily. The patient was eventually transitioned to a clear liquid diet and transferred out of the ICU to the floor. The patient left AMA despite recommendations to stay. Patient expressed understanding of the possible sequela of leaving AMA. Disposition: 01 HOME / SELF CARE / HOMELESS Final Discharge Diagnosis (Prints w/discharge instructions): Acute upper GI bleed, acute metabolic encephalopathy, seizure, alcohol withdrawal, alcohol dependence, acute blood loss anemia Time spent for discharge: 45 min Core Measure Documentation - Palliative Care Palliative Care/ Comfort Measures: Not Applicable - Core Measures Any of the following diagnoses?: none Exam - Constitutional Vitals: Temp Pulse Resp BP Pulse Ox 98.0 F 80 16 132/89 99 03/25/21 05:12 03/25/21 05:12 03/25/21 05:12 03/25/21 05:12 03/25/21 05:12 General appearance: Present: no acute distress, well-nourished, other (Actively tremulous) - EENT Eyes: Present: PERRL, EOM intact ENT: hearing intact, clear oral mucosa, dentition normal - Neck Neck: Present: supple, normal ROM - Respiratory Respiratory effort: normal Respiratory: bilateral: CTA - Cardiovascular Rhythm: regular Heart Sounds: Present: S1 & S2 - Extremities Extremities: no ischemia, pulses intact, pulses symmetrical, No edema, normal temperature, normal color, Full ROM Peripheral Pulses: within normal limits - Abdominal General gastrointestinal: Present: soft, non-tender, non-distended, normal bowel sounds Male genitourinary: Present: deferred - Rectal Rectal Exam: deferred - Integumentary Integumentary: Present: clear, warm, dry - Musculoskeletal Musculoskeletal: strength equal bilaterally, other (Actively tremulous) - Psychiatric Psychiatric: appropriate mood/affect, cooperative - Neurologic Neurologic: CNII-XII intact, moves all extremities - Allied Health Allied health notes reviewed: nursing Plan Follow up with: PRIMARY CAREMD [Primary Care Provider] - 3-5 Days
[2021-03-29] MEDS ORDERED: cloNIDine TTS 0.2 MG/24 HR PATCH TD SCH (10:00)
== END 2021-03-25 10:11 | disposition left against medical advice (07) | DRG 368 ==
LOC: EDSEX → ED 06:57 → IMCU 08:28 → CC1 03-21 10:45 → 3A 03-24 21:58
PROVIDERS: ADMIT Internal Medicine; ATTEND Student in an Organized Health Care Education/Training Program
PROC: 30233N1 Transfusion of Nonautologous Red Blood Cells into Peripheral Vein, Percutaneous Approach (ICD-10-PCS; principal; 2021-03-20)
PROC: 0DB78ZX Excision of Stomach, Pylorus, Via Natural or Artificial Opening Endoscopic, Diagnostic (ICD-10-PCS; 2021-03-23)
DX: K20.91 Esophagitis, unspecified with bleeding (principal); K29.71 Gastritis, unspecified, with bleeding; G93.41 Metabolic encephalopathy; J69.0 Pneumonitis due to inhalation of food and vomit; F10.139 Alcohol abuse with withdrawal, unspecified; D62 Acute posthemorrhagic anemia; E87.1 Hypo-osmolality and hyponatremia; G93.40 Encephalopathy, unspecified; R56.9 Unspecified convulsions; D50.9 Iron deficiency anemia, unspecified; E87.6 Hypokalemia; E16.2 Hypoglycemia, unspecified; Z20.822 Contact with and (suspected) exposure to COVID-19
CPT/HCPCS: 36415; 70450; 71045; 80048; 80053; 80307; 80320; 81001; 82550; 82962; 83735; 84100; 84443; 85007; 85014; 85018; 85025; 85027; 85610; 85730; 86850; 86900; 86901; 86920; 88305; 88342; 93005; 95819; 99291; G0378; J3490; J7070; J7120; J7121; Q0162; C9113; G0480; J0171; J0456; J0696; J1630; J1953; J2060; J2405; J2704; J3360; J3411; J3480; J7030; J7040; P9016